=== PATIENT | male | born 1945 | race Caucasian/White ===

== ENCOUNTER → 2018-09-02 | Outpatient (CLI) | payer MEDICARE, OTHER, SELFPAY ==
[2018-09-02 10:48] LABS: Mucous, Urine 0 SEEN /hpf (<or=2+)
[2018-09-02 12:20] LABS: Absolute Lymphocyte Count 1.73 X10^3/ul (0.83-4.51); Absolute Neutrophil Count 2.3 X10^3/uL (2.0-7.7); Basophil# 0.02 X10^3/uL; Basophil% 0.4 % (0-1); Eosinophil# 0.24 X10^3/uL; Eosinophils% 5.2 % (0-5); Hematocrit 44.7 % (40-54); Hemoglobin 14.9 g/dl (13.0-16.5); Lymphocyte # 1.73 X10^3/ul (4.0); Lymphocyte % 37.5 % (19-41); Mean Corp Hgb Conc 33.3 g/gl (32-36); Mean Corpuscular Hgb 30.7 pg (27.0-32.0); Monocyte# 0.31 X10^3/uL; Monocyte% 6.7 % (0-10); Neutrophil # 2.31 X10^3/uL (2.7-7.7); Neutrophil % 50.2 % (47-70); Platelet Count 137 K/mm3 (150-450); RBC Distribution Width CV 13.3 % (11.6-14.6); RBC Distribution Width SD 43.4 fl (35.1-43.9); Red Blood Count 4.86 M/mm3 (4.6-6.2); White Blood Count 4.6 K/mm3 (4.4-11.0)
[2018-09-02 12:22] LABS: POSITIVE COUNT NO; POSITIVE DIFFERENTIAL NO; POSITIVE MORPHOLOGY NO
[2018-09-02 12:43] LABS: Hemoglobin A1c 5.9 % (4.2-6.3)
[2018-09-02 13:00] LABS: ALB/GLOB Ratio 1.4 RATIO (0.9-2.4); AST(SGOT) 18 U/L (15-37); Alanine Aminotransfer ALT/SGPT 31 U/L (16-61); Albumin, Serum 3.9 g/dL (3.2-5.0); Alkaline Phosphatase 83 U/L (45-117); Anion Gap 4 (5-15); BUN 23 mg/dL (7-18); BUN/Creat Ratio 24.2 RATIO (10-20); Calcium,Total 9.2 mg/dL (8.5-10.1); Chloride 109 mmol/L (98-107); Cholesterol 132 mg/dL (200); Creatinine, Serum 0.95 mg/dL (0.70-1.30); EST Glomerular Filtration Rate 83 mL/min (>60); Est Glom Filt Rate - Afr Amer 100 mL/min (>60); Globulin 2.8 g/dL (2.2-4.2); Glucose 78 mg/dL (74-106); High Density Lipoprotein 42 mg/dL; Potassium 4.4 mmol/L (3.5-5.1); Protein, Total 6.7 g/dL (6.4-8.2); Sodium Level 141 mmol/L (136-145); Triglycerides 85 mg/dL; Very Low Density Lipoprotein 17 mg/dL (5-40)
[2018-09-02 15:47] LABS: Color, Urine Yellow (Yellow); Glucose, Dipstick Normal (Normal); Ketone-Dipstick 5 mg/dl (Negative); Leukocyte Esterase-Dipstick 500 /ul (Negative); Nitrite-Dipstick Negative (Negative); Occult Blood-Urine 10 /ul (Negative); Protein-Dipstick Negative (Negative); Specific Gravity, Urine 1.025 (1.002-1.030); Urine Bilirubin Dipstick Negative (Negative); Urine Clarity Clear (Clear); Urine Urobilinogen Normal (Normal)
[2018-09-02 15:57] LABS: White Blood Cells >100 SEEN /hpf (0-5)
[2018-09-02 15:58] LABS: Bacteria 2+ /hpf (None Seen); Red Blood Cells-Urine 0-5 SEEN /hpf (0-5); Squamous Epithelial Cells - UA 0-5 SEEN /hpf (0-5)
[2018-09-02 16:21] LABS: Microalbumin:Creatinine Ratio 12.8 mg/g CRE (<30 mg/g CRE)
== END | disposition home or self-care (01) ==
PROVIDERS: Family Provider Family Medicine; PCP Family Medicine; Referring Provider Family Medicine; Visit Provider Family Medicine
DX: E11.9 Type 2 diabetes mellitus without complications (principal); E78.5 Hyperlipidemia, unspecified; Z86.79 Personal history of other diseases of the circulatory system
CPT/HCPCS: 36415; 80053; 80061; 81001; 82043; 82570; 83036; 85025

== ENCOUNTER → 2019-04-03 10:09 | Outpatient (CLI) | payer MEDICARE, OTHER, SELFPAY ==
[2019-04-03 12:25] LABS: Absolute Lymphocyte Count 1.62 X10^3/uL (0.83-4.51); Absolute Neutrophil Count 2.7 X10^3/uL (2.0-7.7); Basophil# 0.02 X10^3/uL; Basophil% 0.4 % (0-1); Eosinophil# 0.21 X10^3/uL; Eosinophils% 4.3 % (0-5); Hematocrit 42.8 % (40-54); Hemoglobin 14.4 g/dL (13.0-16.5); Lymphocyte # 1.62 X10^3/ul (4.0); Mean Corp Hgb Conc 33.6 g/dL (32-36); Mean Corpuscular Hgb 31.2 pg (27.0-32.0); Mean Corpuscular Volume 92.6 fL (80-94); Mean Platelet Vol. 11.8 fl (6.2-12.0); Monocyte# 0.38 X10^3/uL; Monocyte% 7.7 % (0-10); NRBC Flagged by Analyzer 0 % (0-5); Neutrophil # 2.67 X10^3/uL (2.7-7.7); Neutrophil % 54.4 % (47-70); Platelet Count 129 K/mm3 (150-450); RBC Distribution Width CV 12.8 % (11.6-14.6); RBC Distribution Width SD 43.5 fl (35.1-43.9); Red Blood Count 4.62 M/mm3 (4.6-6.2); White Blood Count 4.9 K/mm3 (4.4-11.0)
[2019-04-03 13:02] LABS: ALB/GLOB Ratio 1.1 RATIO (0.9-2.4); AST(SGOT) 14 U/L (15-37); Alanine Aminotransfer ALT/SGPT 32 U/L (16-61); Albumin, Serum 3.5 g/dL (3.2-5.0); Alkaline Phosphatase 79 U/L (45-117); Anion Gap 3 (5-15); BUN 18 mg/dL (7-18); BUN/Creat Ratio 17.3 RATIO (10-20); Calcium,Total 9.2 mg/dL (8.5-10.1); Chloride 112 mmol/L (98-107); Cholesterol 108 mg/dL (200); Creatinine, Serum 1.04 mg/dL (0.70-1.30); EST Glomerular Filtration Rate 75 mL/min (>60); Est Glom Filt Rate - Afr Amer 90 mL/min (>60); Globulin 3.2 g/dL (2.2-4.2); Glucose 70 mg/dL (74-106); High Density Lipoprotein 37 mg/dL; Protein, Total 6.7 g/dL (6.4-8.2); Sodium Level 141 mmol/L (136-145); Thyroid Stim Hormone (TSH) 0.86 uIU/mL (0.358-3.74); Triglycerides 105 mg/dL; Very Low Density Lipoprotein 21 mg/dL (5-40)
== END ==
PROVIDERS: PCP Family Medicine; Referring Provider Family Medicine; Visit Provider Family Medicine
DX: E11.9 Type 2 diabetes mellitus without complications (principal); E78.5 Hyperlipidemia, unspecified; Z86.79 Personal history of other diseases of the circulatory system
CPT/HCPCS: 36415; 80053; 80061; 83036; 84443; 85025

== ENCOUNTER → 2019-09-14 08:12 | Outpatient (CLI) | payer MEDICARE, OTHER, SELFPAY ==
[2019-09-14 10:14] LABS: ALB/GLOB Ratio 1.1 RATIO (0.9-2.4); AST(SGOT) 19 U/L (15-37); Alanine Aminotransfer ALT/SGPT 32 U/L (16-61); Albumin, Serum 3.6 g/dL (3.2-5.0); Alkaline Phosphatase 77 U/L (45-117); Anion Gap 4 (5-15); BUN 19 mg/dL (7-18); BUN/Creat Ratio 16.5 RATIO (10-20); Calcium,Total 8.7 mg/dL (8.5-10.1); Chloride 107 mmol/L (98-107); Cholesterol 134 mg/dL (200); Creatinine, Serum 1.15 mg/dL (0.70-1.30); EST Glomerular Filtration Rate 66 mL/min (>60); Est Glom Filt Rate - Afr Amer 80 mL/min (>60); Globulin 3.2 g/dL (2.2-4.2); Glucose 114 mg/dL (74-106); High Density Lipoprotein 41 mg/dL; Potassium 4.1 mmol/L (3.5-5.1); Protein, Total 6.8 g/dL (6.4-8.2); Sodium Level 141 mmol/L (136-145); Triglycerides 84 mg/dL; Very Low Density Lipoprotein 17 mg/dL (5-40)
[2019-09-14 10:19] LABS: Hemoglobin A1c 5.8 % (3.8-5.6)
== END ==
PROVIDERS: PCP Family Medicine; Referring Provider Family Medicine; Visit Provider Family Medicine
DX: E11.9 Type 2 diabetes mellitus without complications (principal); E78.5 Hyperlipidemia, unspecified; Z86.79 Personal history of other diseases of the circulatory system
CPT/HCPCS: 36415; 80053; 80061; 83036

== ENCOUNTER → 2019-09-19 14:55 | Outpatient (CLI) | payer MEDICARE, OTHER, SELFPAY | PROVIDERS: PCP Family Medicine; Referring Provider Family Medicine; Visit Provider Family Medicine | DX: Z12.5 Encounter for screening for malignant neoplasm of prostate (principal) | CPT/HCPCS: 36415; 84153; G0103 ==

== ENCOUNTER → 2019-09-25 13:58 | Outpatient (CLI) | payer MEDICARE, OTHER, SELFPAY ==
[2019-09-27 19:58] LABS: PSA, Free 1.64 ng/mL; PSA, Free % 9.5 % (.); PSA, Total Ultrasensitive 17.2 ng/mL (0.0-4.0)
== END ==
PROVIDERS: PCP Family Medicine; Referring Provider Urology; Visit Provider Urology
DX: R97.20 Elevated prostate specific antigen [PSA] (principal)
CPT/HCPCS: 36415; 84153; 84154

== ENCOUNTER → 2019-11-07 10:51 | Outpatient (CLI) | payer MEDICARE, OTHER, SELFPAY ==
--- NOTE | 2019-11-07 | PROSBIL_PTH ---
PATIENT: RAYMOND MOODY LOC: [facility] U#:[id number] AGE/SX: 79/M ROOM: RE11/07/[address]: Dr. Drake Natarajan MD : 1945 BED: DIS: SPEC #: [id number] RECD: 11/07/19 14:17 STATUS: ITALO MARK #: [id number] NIKUNJ: 11/07/19 00:[address]: Drake Natarajan DEPT: SURGICAL PATHOLOGY RECD BY: Kleber Contreras ENTERED: 11/08/19 10:32 SP TYPE: PROST BX JUAN M DR: Dr. Simón Moise MD Tissues: A - PROSTATE RIGHT B - PROSTATE RIGHT C - PROSTATE RIGHT D - PROSTATE LEFT E - PROSTATE LEFT F - PROSTATE LEFT Procedures: PROSTATE BX HEADER OPERATION: Prostate biopsy PRE-OP DIAGNOSIS: Elevated PSA TISSUE SUBMITTED: A - Right apex, B - Right mid, C - Right base, D - Left apex, E - Left mid, F - Left base MICROSCOPIC DIAGNOSIS A. Right prostate, apex, core biopsy: Focal high-grade prostatic intraepithelial neoplasia (HGPIN). Moderate acute and chronic inflammation. See comment. B. Right prostate, mid, core biopsy: Focal high-grade prostatic intraepithelial neoplasia (HGPIN). Moderate to marked acute and chronic inflammation. See comment. C. Right prostate, base, core biopsy: Focal high-grade prostatic intraepithelial neoplasia (HGPIN). Moderate to marked acute and chronic inflammation. See comment. D. Left prostate, apex, core biopsy: Prostatic tissue, negative for malignancy. E. Left prostate, mid, core biopsy: Prostatic adenocarcinoma. Gilda grade: 4+3=7 Number of cores involved: 2/3 Proportion of tissue involved: ~70% Perineural invasion: Not identified. Greatest tumor length: 0.5 cm Focal high-grade prostatic intraepithelial neoplasia (HGPIN). Focal mild chronic inflammation. See comment. F. Left prostate, base, core biopsy: Prostatic adenocarcinoma. Gilda grade: 4+3=7 Number of cores involved: 2/2 Proportion of tissue involved: >50% Perineural invasion: Present, focal. Greatest tumor length: 0.9 cm, discontinuous. Focal high-grade prostatic intraepithelial neoplasia (HGPIN). See comment. SJ:rg 11/09/19 COMMENT A-C, E & F - Immunohistochemistry ([id number]) supports the above diagnosis. Case has been reviewed in consultation with Dr. Russell who concurs with the above diagnosis. IDC:AM MICROSCOPIC DESCRIPTION Slides are reviewed. GROSS DESCRIPTION A - Received is one container designated prostate, right apex. The specimen consists of one elongated fragment of light martinez-white soft tissue measuring 0.9 cm in length and 0.1 cm in diameter. The specimen is totally submitted in one cassette. B - Received is one container designated prostate, right mid. The specimen consists of two elongated fragments of light martinez-white soft tissue measuring 1 and 1.5 cm in length and 0.1 cm in diameter. The specimen is totally submitted in one cassette. C - Received is one container designated prostate, right base. The specimen consists of two elongated fragments of light martinez-white soft tissue each measuring 1 and 1.5 cm in length and 0.1 cm in diameter. The specimen is totally submitted in one cassette. D - Received is one container designated prostate, left apex. The specimen consists of one elongated fragment of light martinez-white soft tissue measuring 1 cm in length and <0.1 cm in diameter. The specimen is totally submitted in one cassette. E - Received is one container designated prostate, left mid. The specimen consists of three elongated fragments of light martinez-white soft tissue each measuring 0.5 cm in length and 0.1 cm in diameter. The specimen is totally submitted in one cassette. F - Received is one container designated prostate, left base. The specimen consists of two elongated fragments of light martinez-white soft tissue each measuring 1.2 cm in length and 0.1 cm in diameter. The specimen is totally submitted in one cassette. / SJ:rg 11/08/19 TC:0 [facility]: [id number]
--- NOTE | 2019-11-07 | IMM_PTH ---
PATIENT: RAYMOND MOODY LOC: [facility] U#:[id number] AGE/SX: 79/M ROOM: RE11/07/[address]: Dr. Drake Natarajan MD : 1945 BED: DIS: SPEC #: [id number] RECD: 11/09/19 11:44 STATUS: ITALO REQ #: [id number] NIKUNJ: 11/07/19 00:[address]: Drake Natarajan DEPT: IMMUNOHISTOCHEMISTRY RECD BY: Eileen Galvin ENTERED: 11/09/19 11:47 SP TYPE: IMMUNO OTHR DR: Dr. Simón Moise MD Tissues: A - PROSTATE RIGHT B - PROSTATE RIGHT C - PROSTATE RIGHT E - PROSTATE LEFT F - PROSTATE LEFT Procedures: 34BE12 (add) P40 (add) 34BE12 (initial) PHYSICIAN & INSTITUTION [place] [id number] SPECIMEN INFORMATION: Tissue Source: A - Right apex, B - Right mid, C - Right base, E - Left mid, F - Left base Clinical Info: Elevated PSA Specimen Number: [id number] A, B, C, E, F CPT code: 82352, 03871 x9 METHODOLOGY: Deparaffinized sections of prefer/formalin-fixed tissue or PAP/DQ stained slides are incubated with monoclonal/polyclonal antibodies/oligonucleotide probes. Localization is made via biotin free immunoperoxidase method. Appropriate controls are performed and reacted as expected. Results on target cell population are indicated in the following table: RESULTS: ANTIBODY / CLONE RESULT Block A P40 (BC28) positive 34BE12 (34BE12) positive Block B P40 (BC28) positive 34BE12 (34BE12) positive Block C P40 (BC28) positive 34BE12 (34BE12) positive Block E P40 (BC28) negative 34BE12 (34BE12) negative Block F P40 (BC28) negative 34BE12 (34BE12) negative These tests were developed and their performance characteristics determined by [facility]. They may not have been cleared or approved by the U.S. Food and Drug Administration. The FDA has determined that such clearance or approval is not necessary. The above immunohistochemical/dualISH markers are ordered and reviewed by the Pathologist. INTERPRETATION: A. Right prostate, apex, core biopsy: Focal high-grade prostatic intraepithelial neoplasia (HGPIN). B. Right prostate, mid, core biopsy: Focal high-grade prostatic intraepithelial neoplasia (HGPIN). C. Right prostate, base, core biopsy: Focal high-grade prostatic intraepithelial neoplasia (HGPIN). E. Left prostate, mid, core biopsy: Adenocarcinoma. F. Left prostate, base, core biopsy: Adenocarcinoma. SJ:leonard 11/10/19
== END ==
PROVIDERS: PCP Family Medicine; Referring Provider Urology; Visit Provider Urology
DX: R89.7 Abnormal histological findings in specimens from other organs, systems and tissues (principal)
CPT/HCPCS: 88305; 88341; 88342; G0416

== ENCOUNTER → 2019-11-24 10:22 | Outpatient (CLI) | payer MEDICARE, OTHER, SELFPAY ==
--- NOTE | 2019-11-24 10:23 | NM_ITS ---
CLINICAL: 74-year-old male with reported history of carcinoma of the prostate. WHOLE BODY 99m Tc MDP RADIONUCLIDE BONE SCINTIGRAPHY COMPARISON: None available FINDINGS: Following the intravenous administration of 25.4 mCi of 99m Tc MDP, whole body bone images reveal: 1. Increased radiopharmaceutical concentration is identified in the mid cervical spine posteriorly on the right, lower cervical spine posteriorly on the left, acromioclavicular and sternoclavicular compartments of both shoulders, bilateral wrists, the patellofemoral compartment of the left knee, the midfoot bilaterally, fifth lumbar vertebra posteriorly on the right, left posterior sacrum. 2. The remaining skeletal structures are scintigraphically unremarkable with normal-appearing renal images and urinary bladder activity identified. Enhanced tracer distribution is defined in the bilateral maxilla and right mandible most consistent with periodontal disease and/or periostitis. NM/Bone Scan Whole Body IMPRESSION: 1. The increase in radiopharmaceutical concentration identified in the cervical and lumbar spine, right and left shoulders, both wrists, the left knee, bilateral midfoot and sacrum is most consistent with degenerative arthritis. 2. There is no definitive typical scintigraphic evidence of diffuse axial skeletal metastatic disease on the current examination. Electronically Signed: Evans Ceja DO at 16:02 EDT Tel , Service support ,
== END ==
PROVIDERS: PCP Family Medicine; Referring Provider Urology; Visit Provider Urology
DX: C61 Malignant neoplasm of prostate (principal)
CPT/HCPCS: 78306

== ENCOUNTER → 2019-11-28 13:00 | Outpatient (CLI) | payer MEDICARE, OTHER, SELFPAY ==
--- NOTE | 2019-11-28 13:02 | CT_ITS ---
STUDY: CT ABDOMEN AND PELVIS WITH AND WITHOUT CONTRAST REASON FOR EXAM: Male, 74 years old. PROSTATE CA NEW DX. HX OF HERNIA REPAIR AND APPY. RADIATION DOSAGE (If Supplied By Facility): CTDIvol = ( 12.28 ) mGy, DLP = ( 1444.79 ) mGycm TECHNIQUE: Transaxial images were obtained from the dome of the diaphragm to the symphysis pubis without oral contrast. IV 100mL Isovue-300 was administered. Sagittal and coronal images were reconstructed. Individualized dose optimization techniques were used for this CT. COMPARISON: None. FINDINGS: Minimal linear scarring at the lung bases. The visualized portions of the heart are within normal limits. Normal liver. Normal gallbladder and extrahepatic biliary system. Normal spleen. Normal pancreas. Normal bilateral adrenal glands. Normal right kidney. 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 There is a small hiatal hernia. Normal small intestine. Normal colon. There are surgical clips in the region of the appendix consistent with a prior appendectomy. There is diffuse atherosclerotic calcification of the abdominal aorta, without a demonstrated aneurysm. Normal inferior vena cava. Normal retroperitoneum. Diffuse bladder wall thickening and mild trabeculation. There is evidence of prior TURP. Central prostatic calcifications. There is a small umbilical hernia containing fat. There is evidence of mesh repair of a right inguinal hernia. There are diffuse degenerative changes of the visualized lumbar spine. CT/CT Abd/Pelvis W/WO Contrast IMPRESSION: Diffuse bladder wall thickening. Evidence of prior TURP. Dominant left renal cyst. Electronically Signed: Flakito Campbell, at 14:38 EDT , Service support ,
[2019-11-28 13:31] LABS: CREATININE FINGERSTICK 0.9 mg/dL (0.70-1.30); EGFR FINGERSTICK > 60.0000 mL/min (>60)
== END ==
PROVIDERS: PCP Family Medicine; Referring Provider Urology; Visit Provider Urology
DX: C61 Malignant neoplasm of prostate (principal)
CPT/HCPCS: 74178; Q9967

== ENCOUNTER 2019-12-28 15:56 | Inpatient (IN) | payer MEDICARE, OTHER, SELFPAY ==
--- NOTE | 2019-12-20 08:52 | EKG12_ITS ---
Test Reason : PRE OP Blood Pressure : / mmHG Vent. Rate : 081 BPM Atrial Rate : 081 BPM P-R Int : 166 ms QRS Dur : 108 ms QT Int : 388 ms P-R-T Axes : 082 086 069 degrees QTc Int : 450 ms Normal sinus rhythm Normal ECG Confirmed by MARIBEL MUNOZ, HELENA ([id number]), movie editor CARLOS GONZALEZ ([id number]) on 12/25/2019 8:26:43 A M Referred By: Drake Natarajan Confirmed By:SUMMER LÓPEZ MD
[2019-12-20 10:11] LABS: Hematocrit 44.1 % (40-54); Hemoglobin 14.7 g/dL (13.0-16.5); Mean Corp Hgb Conc 33.3 g/dL (32-36); Mean Corpuscular Hgb 31.7 pg (27.0-32.0); Mean Platelet Vol. 11.5 fl (6.2-12.0); Platelet Count 149 K/mm3 (150-450); RBC Distribution Width CV 12.8 % (11.6-14.6); RBC Distribution Width SD 44.2 fl (35.1-43.9); Red Blood Count 4.64 M/mm3 (4.6-6.2); White Blood Count 4.3 K/mm3 (4.4-11.0)
[2019-12-20 10:39] LABS: Anion Gap 5 (5-15); BUN 18 mg/dL (7-18); Calcium,Total 9.2 mg/dL (8.5-10.1); Chloride 106 mmol/L (98-107); EST Glomerular Filtration Rate 63 mL/min (>60); Est Glom Filt Rate - Afr Amer 76 mL/min (>60); Glucose 143 mg/dL (74-106); Potassium 4.3 mmol/L (3.5-5.1); Sodium Level 140 mmol/L (136-145)
[2019-12-27] VITALS (15 sets, daily range): BP systolic 100–119; BP diastolic 31–65; PULSE 63–99; RESP 16–18; TEMP 36.3–37; O2SAT 93–100; BMI 26.1
[2019-12-27 06:50] LABS: Bedside Glucose 107 mg/dL (70-110)
[2019-12-27] MEDS: Lactated Ringers 1,000 ML 100 ML IV (07:09)
[2019-12-27] MEDS: Lactated Ringers 1,000 ML 30 ML IV ×2 (07:10→09:20)
--- NOTE | 2019-12-27 07:17 | HP.PCM_ITS ---
Problem List (1) Prostate cancer Status: Acute History of Present Illness Date of Admission: 12/27/19 Chief Complaint: Prostate cancer The patient is a 74 year old male with high to intermediate grade prostate cancer on the left side high-volume. All of all biopsies were positive left side right side no biopsies were positive he is elected to undergo radical prostatectomy understands of probably will do nonnerve sparing on the left side nerve sparing in the right side we discussed the implications of erectile function on this approach. He already has erectile dysfunction. Past Medical History Allergies cat dander Allergy (Verified 12/27/19 06:45) Shortness of breath melon Allergy (Verified 12/27/19 06:45) Food Allergy Home Medications: Ambulatory Orders Medication Instructions Recorded Aspirin [Aspirin EC] 81 mg PO DAILY 12/18/19 Atorvastatin Calcium [Lipitor] 10 mg PO QHS 12/18/19 Multivit-Min/Folic/Vit K/Lycop 1 ea PO DAILY 12/18/19 [Men's 50 Plus Multivitamin Tab] Surgical History: no surgical history Smoking Status: Never smoker Review of Systems Constitutional: Denies: Chills, Fever, Weight Change HEENT: Denies: Head Aches, Sinus Congestion, Sinus Drainage Cardiovascular: Denies: Chest Pain, Palpitations Respiratory: Denies: Cough, Shortness of breath at rest, Sputum production Gastrointestinal: Denies: Abdominal Pain, Nausea, Vomiting Genitourinary: Denies: Dysuria Musculoskeletal: Denies: Joint Pain, Joint Tenderness Skin: Denies: Rash, Wounds Neurological: Denies: Numbness, Tingling, Focal weakness Psychiatric: Denies: Anxiety, Depression, Homicidal Ideations, Suicidal Ideations Hematologic/ Lymphatic: Denies: Easy Bruising, Easy Bleeding VTE Information - Inpt Only VTE Present on Admission: No VTE Mechan Device Prophylaxis: SCD's - Physical Exam Vitals/I&O's: Vital Signs Temp Pulse Resp BP Pulse Ox 97.6 F L 72 16 114/65 93 12/27/19 06:48 12/27/19 06:48 12/27/19 06:48 12/27/19 06:48 12/27/19 06:48 Oxygen Delivery Method Room Air Weight: 82.6 kg Body Mass Index (BMI) 26.1 General: Alert, Oriented x3, Cooperative HEENT: Atraumatic, PERRLA, EOMI, Normocephalic Neck: Supple, No JVD, Negative Carotid Bruits Lungs: Clear to auscultation, Normal air movement Cardiovascular: Regular rate, No murmurs Abdomen: Bowel Sounds Present, Soft, Non Tender Extremities: No edema, Capillary Refill Less than 3 Seconds Skin: No rashes, No breakdown Musculoskeletal: No Tenderness to Palpation of Joints or Extremities Neurological: Cranial nerves II-XII grossly intact Psych/Mental Status: Normal Affect, Appropriate Laboratory Results 12/27/19 06:44: POC Glucose 107 Current Medications Cefazolin Sodium 2 gm/ Sodium (Chloride) 110 mls @ 150 mls/hr IV PREOP ONE Stop: 12/27/19 08:13 Lactated Ringer's () 1,000 mls @ 100 mls/hr IV .Q10H [facility] Last Admin: 12/27/19 07:09 Dose: 100 mls/hr Documented by: Lactated Ringer's () 1,000 mls @ 30 mls/hr IV .[id number] [facility] Last Admin: 12/27/19 07:10 Dose: 30 mls/hr Documented by: Lactated Ringer's () 1,000 mls @ 30 mls/hr IV .[id number] [facility] Assessment/Plan All Active Problems Prostate cancer (Acute) 74-year-old male plan to proceed with radical prostatectomy nerve sparing in the right side probably wider dissection the left side where the cancer is.
--- NOTE | 2019-12-27 07:26 | PCM.DC.URO ---
Discharge Diet: Light diet - advance as tolerated, Soft diet Discharge Activity: May Not Drive, May Shower Return to work on:: 02/07/20 May shower in (days): 1 Call your doctor if your incision/area has: Continuous Slow Oozing, Sudden Increased Bleeding, Increased Pain/ Swelling, Increased Redness, Foul Smelling Discharge, Swelling at the incision site Call your doctor if you observe: Fever of 101 or Higher, Inability to have a bowel movement, Uncontrolled pain Suture Line Care: Avoid Pulling/Pushing, Avoid Pinching/Bending Catheter: Chandra to leg bag, Chandra to large bag Drain: [place] Instructions: Radical Prostatectomy Allergies/Adverse Reactions: Allergies cat dander Allergy (Verified 12/27/19 06:45) Shortness of breath melon Allergy (Verified 12/27/19 06:45) Food Allergy Medications to take at Discharge Aspirin [Aspirin EC] 81 mg PO DAILY 12/18/19 Atorvastatin Calcium [Lipitor] 10 mg PO QHS 12/18/19 Multivit-Min/Folic/Vit K/Lycop [Men's 50 Plus Multivitamin Tab] 1 ea PO DAILY 12/18/19 Ciprofloxacin [Cipro] 500 mg PO BID #14 tab 12/27/19 Docusate Sodium [Colace] 100 mg PO BID #20 cap 12/27/19 Hydrocodone/Acetaminophen [[place] 5-325 Tablet] 1 each PO Q4H PRN PRN 7 Days #14 tablet 12/27/19 The following prescriptions were given: Ciprofloxacin [Cipro] 500 mg PO BID #14 tab Transmission Status: Pending to [facility] Docusate Sodium [Colace] 100 mg PO BID #20 cap Transmission Status: Pending to [facility] Hydrocodone/Acetaminophen [[place] 5-325 Tablet] 1 each PO Q4H PRN PRN 7 Days #14 tablet PRN Reason: Pain 1-10 Or Fever Transmission Status: Sent to [facility] Primary Care Physician: Simón Moise MD [Primary Care Provider] - Test Results: Test results from this visit will be discussed in further detail at your follow-up appointment, if applicable. Please Follow Up With: Drake Natarajan MD - [phone] When: please call to make an appointment. Proposed Discharge Date: 12/28/19
[2019-12-27] MEDS: Cefazolin 2 GM in 0.9% Normal Saline 100 ML IV (07:28)
--- NOTE | 2019-12-27 07:30 | PROST_PTH ---
PATIENT: RAYMOND MOODY LOC: [facility] U#:[id number] AGE/SX: 74/M ROOM: [facility] RE12/28/[address]: Dr. Drake Natarajan MD : 1945 BED: 1 DIS: 12/30/2019 SPEC #: [id number] RECD: 12/27/19 11:23 STATUS: ITALO REFelipe #: [id number] NIKUNJ: 12/27/19 07:[address]: Drake Natarajan DEPT: SURGICAL PATHOLOGY RECD BY: Jennifer Mcnamara ENTERED: 12/27/19 13:35 SP TYPE: PROSTATE OTHR DR: Dr. Simón Moise MD Tissues: A - Adipose tissue B - Lymph node of pelvis, NOS C - Prostate, NOS Procedures: Surgery Specimen Level III Surgery Specimen Level V Surgery Specimen Level HEADER OPERATION: Lap robotic radical prostatectomy PRE-OP DIAGNOSIS: Malignant neoplasm; elevated PSA TISSUE SUBMITTED: A - Fat over prostate, B - Left pelvic lymph node, C - Prostate MICROSCOPIC DIAGNOSIS A. Fat over prostate: Pieces of adipose tissue, negative for carcinoma. B. Left pelvic lymph node, biopsy: One lymph node, negative for metastatic carcinoma. C. 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 Two minute lymph nodes, negative for metastatic carcinoma. See cancer summary in the comment section. SJ:leonard 01/01/20 COMMENT PROSTATE CANCER (RADICAL) SUMMARY (including specimen B & C): Procedure: Radical Prostatectomy Prostate Size: Weight: 53 gm Size: 6 cm transversely, 4 cm anterior-posteriorly and 3.5 cm craniocaudally Histologic type: Acinar adenocarcinoma - Ductal adenocarcinoma Histologic grade: Group 5, 5+4=9 Intraductal Carcinoma: Present, focal Tumor Quantitation (estimated percent of prostate involved by tumor): ~30% Tumor size: Greatest focus measures 2 x 2 cm (measured microscopically) Extraprostatic Extension: Not identified Urinary Bladder Neck Invasion: Not identified Seminal Vesicle Invasion: Not identified Lymphvascular Invasion: Not identified Perineural Invasion: Present, focal Margins: Apical margin is focally involved by the tumor. - limited involvement (<3 mm) Linear length of positive margin (~1.5 mm) Focality: Unifocal [place] pattern at positive margin: pattern 4 Treatment Effect: No known presurgical therapy. Regional Lymph Nodes: Number of lymph nodes involved by carcinoma: 0 Total Number of Lymph Nodes Examined: 3 Distant metastasis: No applicable Additional Pathologic Findings: High-grade prostatic intraepithelial neoplasia (HGPIN). Focal chronic inflammation. Ancillary studies: Not performed PATHOLOGIC STAGE: pT2 pN0 Mx The above summary is in compliance with [employer] ([employer]) Cancer Protocols Checklist and [place] [employer] on Cancer (AJCC), Staging Manual, 8th Ed. The tumor predominantly involves both right and left lobes, right apical and mid portion and left apical, mid and basal portion. Please make reference to previous specimen ([id number]) right prostate, apex and mid, core biopsy with diagnosis of focal high-grade prostatic intraepithelial neoplasia and left prostate, mid and left prostate base with diagnosis of prostatic adenocarcinoma. Case has been reviewed in consultation with Dr. Russell who concurs with the above diagnosis. IDC:AM MICROSCOPIC DESCRIPTION Slides are reviewed. GROSS DESCRIPTION A - Received in fixative is one container labeled with the patient's name and designated fat over prostate. The specimen consists of three variable sized pieces of yellow adipose tissue measuring in aggregate 3.5 x 2.5 x 0.5 cm. No mass lesion is identified. Systems Engineering Manager sections are submitted in one cassette. / :rg 12/27/19 B - Received in fixative is one container labeled with the patient's name and designated left pelvic lymph node. The specimen consists of a piece of yellow adipose tissue measuring 2.5 x 2.5 x 1 cm. One lymph node is identified measuring 2 cm in greatest dimension. The entire specimen is submitted in two cassettes. Cassette 1 contains the lymph node. / :rg 12/27/19 C - Received in fixative is one container labeled with the patient's name and designated prostate. The specimen consists of a radical prostatectomy specimen consisting of prostate and bilateral seminal vesicles and vas deferens. The specimen weighs 53 gm. The prostate measures 6 cm transversely, 4 cm anterior-posteriorly and 3.5 cm craniocaudally. The right seminal vesicle measures 2.5 x 1.5 x 0.5 cm and right vas deferens measures 1.5 cm in length and 0.4 cm in diameter. The left seminal vesicle measures 2.5 x 1.5 x 1 cm and the left vas deferens measures 2.5 cm in length and 0.4 cm in diameter. The prostate is inked as follows: anterior surface - yellow, posterior surface - black, right lateral surface - blue, left lateral surface - green. The bilateral seminal vesicles and vas deferens are inked as follows: Posterior surface - black, anterior surface right seminal vesicle and vas deferens - blue and anterior left seminal vesicle and vas deferens - green. Sections of the prostate do no reveal any obvious well-defined mass lesion. Systems Engineering Manager sections are submitted in 19 cassettes as follows: 1 - right seminal vesicle and vas deferens, 2 - left seminal vesicle and vas deferens, 3 - apical/urethral margin, enface, 4 & 5 - bladder base and basal portion of prostate margin, enface, 6-9 - apical portion prostate, 10-13 - mid portion prostate, 14-19 - basal portion prostate. / SJ:rg 12/28/19 TC:0 CPT: 66374, 43221, 38130
--- NOTE | 2019-12-27 10:22 | PCM.OPRPT ---
Problem List (1) Prostate cancer Status: Acute Report of Operation Date of Procedure: 12/27/19 Pre-Operative Diagnosis: Prostate cancer Post-Operative Diagnosis: Same Surgery/Procedure Performed:: Laparoscopic robotic assisted radical prostatectomy and pelvic lymph node dissection Description of Surgical Findings:: 74-year-old male who was found to have high-grade high-volume prostate cancer involving the left side of the prostate he is elected undergo radical prostatectomy I recommended we do a wide nerves dissection on the left side and do nerve sparing in the right side today we can proceed with a radical prostatectomy. He has a history of prior TURP. Patient was taken back to the operating room at the smooth induction of general anesthesia he was placed in dorsolithotomy position the legs in stirrups. The abdomen shaved prepped and draped in usual sterile fashion. He had a small meatal stricture which was dilated and I placed a 16 Salvadorean catheter into the bladder. We then placed our camera trocar in the umbilicus we insufflated the peritoneum with CO2 gas placed our robotic trochars docked the robot and then started the posterior dissection we went below the bladder and dissected the and cut through the peritoneum into the vas deferens and seminal vesicles these were dissected out and then I dissected below the prostate to free the prostate off the rectum. We then came out so we dropped the bladder created space of Retzius we took the fat off the prostate this was sent off as a specimen is brought up fat over prostate. We then proceeded with a lymph node dissection we went to the left pelvic lymph node identified the landmarks left iliac vein and artery identified and cleaned I then used large clips to identify the lymphatic chain in the lymph nodes were taken off the lymphatic chain the obturator nerve was identified. And then the lymph nodes were removed and put in specimen bag and sent off they appear to be normal but some lymph node tissue was removed. I then went to the prostate I incised endopelvic fascia in the right and left side dissected up to the apex of the prostate incised to the puboprostatic ligaments and and then placed a stitch in the dorsal vein complex came back between the bladder and prostate and dissected between the bladder and prostate coming across the bladder neck he did had a prior TURP so he had an open bladder neck. I then dissected between the bladder and prostate posteriorly until I reached the seminal vesicles and vas deferens. Went to the right side we sweep the neurovascular bundles off the prostate at the right side we came to the pedicles in the right side and then followed underneath the prostate and the right side all the way to the apex sparing the neurovascular bundles as we into the right side this was a good nerve sparing on the right side. We then went to the left side and this is the site of the high-grade cancer as we came to the pedicle with clips when a wider dissection in the left side all the way to the apex. Then transected to the dorsal vein complex. I then came to the urethra and dissected the urethra circumferentially so they had nice urethral length. Prostate was then removed put an Endo Catch bag we then performed an anastomosis between the bladder and the urethra over a catheter continuous running stitch was performed over the catheter we changed to an 18 Salvadorean catheter at the end of the case again a little bit difficult to get the catheter in the meatus because a small meatal stricture at the dilate this a little bit. We then flushed the catheter the urine was clear there was no leakage from the anastomosis. We then undocked the robot we extracted the prostate from the air seal port and closed this in 2 layers we then removed all the other 8 mm trochars and then closed the skin with septic the tickler skip ditches all the sponges and needles were accounted for patient is currently under anesthetic and currently being reversed from his anesthesia very minimal blood loss of the case about 300 cc. Type of Anesthesia:: General Drains: cole - Admit VTE Documentation VTE Present on Admission: No VTE Mechan Device Prophylaxis: SCD's
[2019-12-27] MEDS: Ketorolac 15 MG/ML Vial IV ×2 (12:25→17:15)
[2019-12-27] MEDS: 0.45% Normal Saline 1,000 ML 125 ML IV ×2 (13:00→21:45)
[2019-12-27] MEDS: Ciprofloxacin 400 MG/200 ML BAG 200 MG IV (14:56)
[2019-12-27] MEDS: 0.9% Saline Lock 10 ML Syringe IV ×3 (17:14→23:32)
[2019-12-27] MEDS: Ondansetron 4 MG/2 ML Vial IV (17:14)
[2019-12-27] MEDS: proCHLORPERazine 10 MG/2 ML Vial IV (19:59)
[2019-12-27] MEDS: Lactated Ringers 1,000 ML 999 ML IV (20:39)
--- NOTE | 2019-12-27 21:06 | NURSING ---
195812/27/19 pt stated he was still nauseous and was vomitting after getting zofran 4mg Q6 at 1714 [facility] called and ordered Compazine 10mg. this RN went to push med and only was able to push 5mg (1ml) before pt started to react. pt started having jerky movements and was staring off into distance with a blank expression, pt was not responsive to calling his name. this RN discontinued pushing Compazine and IV was removed. while medication was being pushed this RN also had pt sit up so posterior lung sounds could be assessed. unsure if pt vagaled or if it was a reaction to the Compazine. was notified and new orders were recieved. [facility] was in to see pt at 2044 and irrigate bladder
[2019-12-27] MEDS: Docusate Sodium 100 MG Capsule PO (22:47)
[2019-12-27] MEDS: Atorvastatin Calcium 10 MG Tablet PO (22:47)
[2019-12-27] MEDS: Ondansetron 4 MG/2 ML Vial 6 MG IV (23:32)
[2019-12-28] VITALS (15 sets, daily range): BP systolic 100–126; BP diastolic 40–80; PULSE 80–104; RESP 16–22; TEMP 36.5–37.1; O2SAT 96–99
[2019-12-28] MEDS: Ketorolac 15 MG/ML Vial IV (00:13)
[2019-12-28] MEDS: Lactated Ringers 1,000 ML 999 ML IV (00:14)
[2019-12-28 00:22] LABS: Absolute Lymphocyte Count 0.46 X10^3/uL (0.83-4.51); Absolute Neutrophil Count 8.2 X10^3/uL (2.0-7.7); Basophil# 0.01 X10^3/uL; Basophil% 0.1 % (0-1); Eosinophil# 0.18 X10^3/uL; Eosinophils% 1.9 % (0-5); Hematocrit 29.7 % (40-54); Hemoglobin 9.9 g/dL (13.0-16.5); Lymphocyte # 0.46 X10^3/ul (4.0); Mean Corp Hgb Conc 33.3 g/dL (32-36); Mean Corpuscular Hgb 32.5 pg (27.0-32.0); Mean Corpuscular Volume 97.4 fL (80-94); Monocyte# 0.41 X10^3/uL; Monocyte% 4.4 % (0-10); NRBC Flagged by Analyzer 0 % (0-5); Neutrophil # 8.17 X10^3/uL (2.7-7.7); Neutrophil % 88.4 % (47-70); POSITIVE DIFFERENTIAL YES; POSITIVE MORPHOLOGY YES; Platelet Count 130 K/mm3 (150-450); RBC Distribution Width CV 12.9 % (11.6-14.6); RBC Distribution Width SD 45.5 fl (35.1-43.9); Red Blood Count 3.05 M/mm3 (4.6-6.2); White Blood Count 9.3 K/mm3 (4.4-11.0)
[2019-12-28 00:27] LABS: Differential Indicated SCAN CRITERIA MET
[2019-12-28 00:36] LABS: Anion Gap 10 (5-15); BUN 26 mg/dL (7-18); BUN/Creat Ratio 9.8 RATIO (10-20); Chloride 109 mmol/L (98-107); Creatinine, Serum 2.66 mg/dL (0.70-1.30); EST Glomerular Filtration Rate 25 mL/min (>60); Est Glom Filt Rate - Afr Amer 30 mL/min (>60); Estimated Creatinine Clearance 25.54 ml/min; Glucose 202 mg/dL (74-106); Potassium 5.1 mmol/L (3.5-5.1); Sodium Level 141 mmol/L (136-145)
--- NOTE | 2019-12-28 00:37 | PCM.PN.BLA ---
Progress Note 74-year-old male who underwent a radical prostatectomy earlier today really had a nice case minimal blood loss during the surgery and the recovery room looked like he had nice urine coming out of the Chandra catheter. He was sent to the floor on first shift they recorded a urine output 150 cc which appeared appropriate. But then around 7:00 they reported very low urine output I came up and saw the patient at that point flushed the catheter there was no clots the patient has been some nausea and some vomiting not feeling well to the stomach. Gave another fluid bolus of the 1 L. Came back up and saw the patient here at midnight and had very little to no urine output out. We did a stat CBC and a BMP. The CBC is back hemoglobin is down to 9.9 but still I would expect some urine output even with a drop in hemoglobin. BMP is pending. We flushed the catheter again there is no clots is not clotted off bladder is draining well. At this point we start worrying about obstruction of the ureter either surgical so it is sent in for a CT scan of the abdomen pelvis with IV contrast to evaluate the bladder and the ureters and the anastomosis. He has been having some liquid diarrhea did a rectal exam really there was no liquid fluid in the rectum also concern could be a fistula but really there is but not a bunch of fluid in the rectum so. We will do a CAT scan see was going on he may have to go back to surgery it appears to be obstruction. STROKE Vital Signs/Narrative: Vital Signs Temp Pulse Resp BP Pulse Ox 12/27/19 23:48 98.6 F 99 18 113/62 98
--- NOTE | 2019-12-28 00:40 | CT_ITS ---
We are attempting to reach an attending provider to discuss findings. An addendum with communication details will be sent when the communication is complete. STUDY: CT ABDOMEN AND PELVIS WITHOUT CONTRAST REASON FOR EXAM: Male, 74 years old. NO URINE OUTPUT POST RADICAL PROSTATECTOMY -- HX:PROSTATE CANCER -- *NO IV CONTRAST DUE TO ELEVATED CREATNINE* RADIATION DOSAGE (If Supplied By Facility): CTDIvol = ( 19.41 ) mGy, DLP = ( 1160.35 ) mGycm TECHNIQUE: Transaxial images were obtained from the dome of the diaphragm to the symphysis pubis without oral contrast, and without intravenous contrast. Sagittal and coronal images were reconstructed. Individualized dose optimization techniques were used for this CT. COMPARISON: None. FINDINGS: The visualized lung bases are unremarkable. The visualized portions of the heart are within normal limits. Normal liver. Normal gallbladder and extrahepatic biliary system. Normal spleen. Normal pancreas. Normal bilateral adrenal glands. Normal right kidney. There is a 6.2 cm x 5.5 cm cyst in the upper posterior aspect of the left kidney. 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 Normal visualized stomach. Normal small intestine. Normal colon. The appendix is visualized and appears normal. There is diffuse atherosclerotic calcification of the abdominal aorta, without a demonstrated aneurysm. Normal inferior vena cava. Normal retroperitoneum. A ORTIZ catheter seen in the bladder. There is hematoma in the prostate bed measures 7 x 6 cm. There is moderate amount of hemorrhage in the peritoneal cavity. Dissecting air bubbles are seen in the abdominal wall most likely due to recent surgery follow-up is recommended to exclude an infectious process. There is thickening of the abdominal wall muscles bilaterally most likely edema or fluid due to postsurgical changes. Normal osseous structures. CT/Abdomen/Pelvis without Cont IMPRESSION: There is hematoma in the prostate bed measures 7 x 6 cm. There is moderate amount of hemorrhage in the peritoneal cavity. Electronically Signed: Rios Angelo, at 2:38 EDT Tel , Service support ,
[2019-12-28 00:45] LABS: Differential Comment SCANNED
--- NOTE | 2019-12-28 01:20 | NURSING ---
Dr Natarajan in to see pt. Pt sent down for CT scan. Dr Natarajan came back to pt's room and explained the scan, recommended surgery and described the surgery. Pt signed consent. This nurse asked pt if he would like help calling his . Pt responded no. This nurse asked pt if he was sure. Pt responded positive. States he doesn't want her to worry.
--- NOTE | 2019-12-28 01:24 | PCM.PN.BLA ---
Progress Note 74-year-old male who underwent a laparoscopic robotic radical prostatectomy, this evening he had no urine output after 2 fluid boluses still no urine output so we did a CAT scan which demonstrated a large pelvic hematoma which is pushing up on the base of his bladder the hematomas between the rectum and the bladder I believe this is pushing up in the trigone so hard that is compressing the ureters and preventing drainage from both the kidneys is creatinines up to 2.66 I explained to the patient that while the taken back to surgery we will do a laparoscopic exploration evacuation of hematoma blood clots hopefully control the bleeding and then also do a cystoscopy and bilateral stent placement to help with drainage from both the kidneys. Told the patient is possible have to do an open exploration as well but will try to do laparoscopically to minimize his morbidity. Patient understood he signed the consent form for exploration organ to go immediately the team's been called. STROKE Vital Signs/Narrative: Vital Signs Temp Pulse Resp BP Pulse Ox 12/27/19 23:48 98.6 F 99 18 113/62 98
--- NOTE | 2019-12-28 02:04 | NURSING ---
report given to surgery at this time. Patient leaving floor for OR.
[2019-12-28] MEDS: Bupivacaine Mpf 0.5% 30 ML VIAL (02:50)
[2019-12-28] MEDS: Ciprofloxacin 400 MG/200 ML BAG 200 MG IV (03:00)
--- NOTE | 2019-12-28 03:44 | PCM.OPRPT ---
Problem List (1) Prostate cancer Status: Acute Report of Operation Date of Procedure: 12/28/19 Pre-Operative Diagnosis: Postoperative hemorrhage hematoma in the pelvic area Post-Operative Diagnosis: Same Surgery/Procedure Performed:: Laparoscopic exploratory laparotomy evacuation of pelvic blood clots. Cystoscopy and placement of left stent attempted right stent placement Description of Surgical Findings:: 74-year-old male was taken back to the operating room, prior to surgery explained the patient that he was not making any urine on CAT scan he had a large pelvic hematoma looked like the bladder was being pushed up anteriorly he was dry look anemic with the pelvic hematoma recommended we taken the surgery and evacuate the pelvic hematoma also thing by placing stents bilaterally make sure there is no obstruction of the ureters. Patient was taken back to the operating room was placed supine on the table he immediately become hypotensive he was given fluids and pressors by anesthesia. We prepped and draped the abdomen usual sterile fashion placed in dorsolithotomy position. During the case he did have low blood pressures and was treated immediately by anesthesia. Went into the umbilicus placed 5 mm trocar and then placed to working trochars in the right and left abdomen using the prior incisions from the surgery the day before. Once inside the abdomen there was a large hematoma that was evident dark old blood throughout the pelvic area all this blood was evacuated using the suction evacuator I went above the bladder the anastomosis was intact and evacuated blood clots above the bladder extensively and then went below the bladder and evacuated blood clots below the bladder extensively could not really find any active bleeding after evacuating his blood clots then I placed FloSeal deep in the pelvis on both the right and left side as a precautionary measure but again really could not identify the active source of bleeding. We then had the patient in the dorsolithotomy position to remove the catheter went in with a 21 Wolof scope got to the anastomosis very carefully went to the anastomosis I was intact. I then inspected the abdomen the left ureteral orifice was identified very close anastomosis a put a wire up this in the put a stent up this took a little bit of time to look for the right side but the right side I think it was folded the lateral folds in the bladder I really could not identify the right side and did not want to spend more time in because tear in the anastomosis or any problems anastomosis so I did not further search for the right ureteral orifice I knew it would be difficult to find given the prior repair and the anastomosis ureteral orifice could be an ectopic location so after distending the left side then I put a wire into the scope and over the wire is a [place] tip catheter put into the bladder and then inflated 10 cc in the catheter and drained the bladder we then patient acetic was reversed to evaluate all the ports were taken out from the umbilicus there these were all 5 mm ports of the need to be close the fascia so then I did we just closed the skin with subcuticular stitches and bandages and he was taken back to the PACU in good condition he was hydrated with 1600 fluid up prostanoid no more pressors were used and his blood pressure was back up and he was started to make some urine from the catheter. Type of Anesthesia:: General
[2019-12-28 04:10] LABS: Hematocrit 25.5 % (40-54); Hemoglobin 8.2 g/dL (13.0-16.5); Mean Corp Hgb Conc 32.2 g/dL (32-36); Mean Corpuscular Volume 99.6 fL (80-94); Mean Platelet Vol. 11.1 fl (6.2-12.0); Platelet Count 112 K/mm3 (150-450); RBC Distribution Width CV 12.8 % (11.6-14.6); RBC Distribution Width SD 46.1 fl (35.1-43.9); Red Blood Count 2.56 M/mm3 (4.6-6.2)
[2019-12-28 04:24] LABS: Anion Gap 10 (5-15); BUN 29 mg/dL (7-18); BUN/Creat Ratio 10.5 RATIO (10-20); Calcium,Total 7.4 mg/dL (8.5-10.1); Chloride 106 mmol/L (98-107); Creatinine, Serum 2.77 mg/dL (0.70-1.30); EST Glomerular Filtration Rate 24 mL/min (>60); Est Glom Filt Rate - Afr Amer 29 mL/min (>60); Estimated Creatinine Clearance 24.52 ml/min; Glucose 189 mg/dL (74-106); Potassium 4.7 mmol/L (3.5-5.1); Sodium Level 138 mmol/L (136-145)
[2019-12-28] MEDS: Lactated Ringers 1,000 ML 150 ML IV (04:39)
[2019-12-28 05:08] LABS: Bedside Glucose 193 mg/dL (70-110)
--- NOTE | 2019-12-28 07:40 | PCM.PROGNOTE ---
Patient Problems: Active and Suspected Problems Prostate cancer (Acute) Subjective: 74-year-old male taken back to surgery last night for laparoscopic exploration found a large hematoma in the pelvis area which was evacuated also to place a stent on the left side. He feels much better this morning urine output is good steady urine output. Abdomen soft and benign incisions are clean and intact. - Physical Exam Vitals/I&O's: Vital Signs Temp Pulse Resp BP Pulse Ox 98.0 F 90 18 114/40 L 98 12/28/19 06:39 12/28/19 06:57 12/28/19 06:39 12/28/19 06:39 12/28/19 06:39 Oxygen Delivery Method Room Air Weight: 82.6 kg Body Mass Index (BMI) 26.1 Intake and Output for Last 24 Hours 12/26/19 12/27/19 12/28/19 23:59 23:59 23:59 Intake Total 4714.17 / 4714.17 1945.84 / 1945.84 Output Total 900 / 900 350 / 350 Balance 3814.17 / 3814.17 1595.84 / 1595.84 General: Alert, Oriented x3, Cooperative HEENT: Atraumatic, PERRLA, EOMI, Normocephalic Neck: Supple, No JVD, Negative Carotid Bruits Lungs: Clear to auscultation, Normal air movement Cardiovascular: Regular rate, No murmurs Abdomen: Bowel Sounds Present, Soft, Non Tender Extremities: No edema, Capillary Refill Less than 3 Seconds Skin: No rashes, No breakdown Musculoskeletal: No Tenderness to Palpation of Joints or Extremities Neurological: Cranial nerves II-XII grossly intact Psych/Mental Status: Normal Affect, Appropriate Laboratory Results 12/28/19 00:15: WBC 9.3, RBC 3.05 L, Hgb 9.9 L, Hct 29.7 L, MCV 97.4 H, MCH 32.5 H, MCHC 33.3, RDW Std Deviation 45.5 H, RDW Coeff of Indira 12.9, Plt Count 130 L, MPV 11.0, Immature Gran % (Auto) 0.200, Neut % (Auto) 88.4 H, Lymph % (Auto) 5.0 L, Starr % (Auto) 4.4, Eos % (Auto) 1.9, Baso % (Auto) 0.1, Absolute Neuts (auto) 8.2 H, Absolute Lymphs (auto) 0.46 L, Nucleated RBC % 0, Differential Comment SCANNED 12/28/19 00:15: Sodium 141, Potassium 5.1, Chloride 109 H, Carbon Dioxide 22.0, Anion Gap 10, BUN 26 H, Creatinine 2.66 H, Estim Creat Clear Calc 25.54, Est GFR (MDRD) Af Amer 30 L, Est GFR (MDRD) Non-Af 25 L, BUN/Creatinine Ratio 9.8 L, Glucose 202 H, Calcium 8.0 L 12/28/19 03:50: POC Glucose 193 H 12/28/19 04:00: WBC 8.0, RBC 2.56 L, Hgb 8.2 L, Hct 25.5 L, MCV 99.6 H, MCH 32.0, MCHC 32.2, RDW Std Deviation 46.1 H, RDW Coeff of Indira 12.8, Plt Count 112 L, MPV 11.1 12/28/19 04:00: Sodium 138, Potassium 4.7, Chloride 106, Carbon Dioxide 22.0, Anion Gap 10, BUN 29 H, Creatinine 2.77 H, Estim Creat Clear Calc 24.52, Est GFR (MDRD) Af Amer 29 L, Est GFR (MDRD) Non-Af 24 L, BUN/Creatinine Ratio 10.5, Glucose 189 H, Calcium 7.4 L Current Medications Acetaminophen (Acetaminophen 500 Mg Tablet) 500 mg PO Q4H PRN PRN PRN Reason: Pain Score 1-10/10 /Headache Atorvastatin Calcium (Atorvastatin Calcium 10 Mg Tablet) 10 mg PO QHS [facility] Last Admin: 12/27/19 22:47 Dose: 10 mg Documented by: Docusate Sodium (Docusate Sodium 100 Mg Capsule) 100 mg PO BID [facility] Last Admin: 12/27/19 22:47 Dose: 100 mg Documented by: Sodium Chloride () 250 mls @ 15 mls/hr IV .[id number] PRN PRN Reason: Saline Flush Sodium Chloride () 250 mls @ 15 mls/hr IV .[id number] PRN PRN Reason: Additional IVPB Infusion Lactated Ringer's () 1,000 mls @ 150 mls/hr IV .[id number] [facility] Last Admin: 12/28/19 04:39 Dose: 150 mls/hr Documented by: Magnesium Hydroxide (Magnesium Hydroxide 30 Ml Udc) 15 ml PO DAILY [facility] Last Admin: 12/27/19 13:53 Dose: Not Given Documented by: Morphine Sulfate (Morphine 2 Mg/Ml Syringe) 2 mg IV Q1H PRN PRN PRN Reason: Pain Score 1-10 Ondansetron HCl (Ondansetron 4 Mg/2 Ml Vial) 6 mg IV Q4H PRN PRN PRN Reason: NAUSEA Last Admin: 12/27/19 23:32 Dose: 6 mg Documented by: Pantoprazole Sodium (Pantoprazole Sodium 20 Mg Tablet) 20 mg PO DAILY [facility] Last Admin: 12/27/19 13:53 Dose: Not Given Documented by: Sodium Chloride (0.9% Saline Lock 10 Ml Syringe) 10 - 40 ml IV UD PRN PRN Reason: SALINE FLUSH Last Admin: 12/27/19 23:32 Dose: 10 ml Documented by: Medical Necessity - Tobacco Use Smoking Status: Never smoker Assessment/Plan All Active Problems Prostate cancer (Acute) 74-year-old male status post exploration, found to have large pelvic hematoma. Will follow H&H check a blood count tomorrow. Slow IV fluids ambulate in hallways clear liquid diet.
[2019-12-28] MEDS: Docusate Sodium 100 MG Capsule PO ×2 (10:40→20:52)
[2019-12-28] MEDS: Pantoprazole Sodium 20 MG Tablet PO (10:41)
[2019-12-28] MEDS: Lactated Ringers 1,000 ML 75 ML IV (12:47)
[2019-12-28] MEDS: 0.9% Normal Saline 1,000 ML 50 ML IV (17:38)
[2019-12-28] MEDS: Atorvastatin Calcium 10 MG Tablet PO (20:52)
[2019-12-29] VITALS (13 sets, daily range): BP systolic 100–128; BP diastolic 40–60; PULSE 78–94; RESP 16–18; TEMP 36.3–37.4; O2SAT 93–99
[2019-12-29 06:45] LABS: Hematocrit 18.7 % (40-54); Hemoglobin 6.3 g/dL (13.0-16.5); Mean Corp Hgb Conc 33.7 g/dL (32-36); Mean Corpuscular Hgb 32.3 pg (27.0-32.0); Mean Corpuscular Volume 95.9 fL (80-94); Mean Platelet Vol. 10.9 fl (6.2-12.0); POSITIVE COUNT YES; Platelet Count 83 K/mm3 (150-450); RBC Distribution Width CV 13.2 % (11.6-14.6); RBC Distribution Width SD 45.9 fl (35.1-43.9); Red Blood Count 1.95 M/mm3 (4.6-6.2); White Blood Count 6.9 K/mm3 (4.4-11.0)
[2019-12-29 07:09] LABS: Scan Indicated on CBC? Y/N YES- FLAGS NOTED
[2019-12-29 07:13] LABS: Anion Gap 2 (5-15); BUN 21 mg/dL (7-18); BUN/Creat Ratio 15.6 RATIO (10-20); Calcium,Total 7.9 mg/dL (8.5-10.1); Chloride 114 mmol/L (98-107); Creatinine, Serum 1.35 mg/dL (0.70-1.30); EST Glomerular Filtration Rate 55 mL/min (>60); Est Glom Filt Rate - Afr Amer 67 mL/min (>60); Estimated Creatinine Clearance 50.32 ml/min; Glucose 105 mg/dL (74-106); Potassium 4.3 mmol/L (3.5-5.1); Sodium Level 145 mmol/L (136-145)
[2019-12-29 07:14] LABS: Differential Comment SCANNED
--- NOTE | 2019-12-29 07:22 | PN_ITS ---
Patient Problems: Active and Suspected Problems Prostate cancer (Acute) Subjective: 74-year-old male status post exploration for postop bleeding evacuation of blood clots this morning H&H was low hemoglobin is 6.3 blood pressure is maintaining but given his low blood count recommend transfusing 2 units of blood. - Physical Exam Vitals/I&O's: Vital Signs Temp Pulse Resp BP Pulse Ox 98.8 F 89 17 104/56 L 94 12/29/19 04:08 12/29/19 04:08 12/29/19 04:08 12/29/19 04:08 12/29/19 04:08 Oxygen Delivery Method Room Air Weight: 82.6 kg Body Mass Index (BMI) 26.1 Intake and Output for Last 24 Hours 12/27/19 12/28/19 12/29/19 23:59 23:59 23:59 Intake Total 4714.17 / 4714.17 4002.09 / 4002.09 770 / 770 Output Total 900 / 900 3000 / 3000 2300 / 2300 Balance 3814.17 / 3814.17 1002.09 / 1002.09 -1530 / -1530 General: Alert, Oriented x3, Cooperative HEENT: Atraumatic, PERRLA, EOMI, Normocephalic Neck: Supple, No JVD, Negative Carotid Bruits Lungs: Clear to auscultation, Normal air movement Cardiovascular: Regular rate, No murmurs Abdomen: Bowel Sounds Present, Soft, Non Tender Extremities: No edema, Capillary Refill Less than 3 Seconds Skin: No rashes, No breakdown Musculoskeletal: No Tenderness to Palpation of Joints or Extremities Neurological: Cranial nerves II-XII grossly intact Psych/Mental Status: Normal Affect, Appropriate Laboratory Results 12/29/19 06:15: WBC 6.9, RBC 1.95 L, Hgb 6.3 L, Hct 18.7 L, MCV 95.9 H, MCH 32.3 H, MCHC 33.7, RDW Std Deviation 45.9 H, RDW Coeff of Indira 13.2, Plt Count 83 L, MPV 10.9, Differential Comment SCANNED 12/29/19 06:15: Sodium 145, Potassium 4.3, Chloride 114 H, Carbon Dioxide 29.0, Anion Gap 2 L, BUN 21 H, Creatinine 1.35 H, Estim Creat Clear Calc 50.32, Est GFR (MDRD) Af Amer 67, Est GFR (MDRD) Non-Af 55 L, BUN/Creatinine Ratio 15.6, Glucose 105, Calcium 7.9 L Current Medications Acetaminophen (Acetaminophen 500 Mg Tablet) 500 mg PO Q4H PRN PRN PRN Reason: Pain Score 1-10/10 /Headache Atorvastatin Calcium (Atorvastatin Calcium 10 Mg Tablet) 10 mg PO QHS [facility] Last Admin: 12/28/19 20:52 Dose: 10 mg Documented by: Docusate Sodium (Docusate Sodium 100 Mg Capsule) 100 mg PO BID [facility] Last Admin: 12/28/19 20:52 Dose: 100 mg Documented by: Sodium Chloride () 250 mls @ 15 mls/hr IV .[id number] PRN PRN Reason: Saline Flush Sodium Chloride () 250 mls @ 15 mls/hr IV .[id number] PRN PRN Reason: Additional IVPB Infusion Sodium Chloride () 1,000 mls @ 50 mls/hr IV .Q20H [facility] Last Admin: 12/28/19 17:38 Dose: 50 mls/hr Documented by: Magnesium Hydroxide (Magnesium Hydroxide 30 Ml Udc) 15 ml PO DAILY [facility] Last Admin: 12/28/19 10:41 Dose: Not Given Documented by: Morphine Sulfate (Morphine 2 Mg/Ml Syringe) 2 mg IV Q1H PRN PRN PRN Reason: Pain Score 1-10 Ondansetron HCl (Ondansetron 4 Mg/2 Ml Vial) 6 mg IV Q4H PRN PRN PRN Reason: NAUSEA Last Admin: 12/27/19 23:32 Dose: 6 mg Documented by: Pantoprazole Sodium (Pantoprazole Sodium 20 Mg Tablet) 20 mg PO DAILY [facility] Last Admin: 12/28/19 10:41 Dose: 20 mg Documented by: Sodium Chloride (0.9% Saline Lock 10 Ml Syringe) 10 - 40 ml IV UD PRN PRN Reason: SALINE FLUSH Last Admin: 12/27/19 23:32 Dose: 10 ml Documented by: Medical Necessity - Tobacco Use Smoking Status: Never smoker Assessment/Plan All Active Problems Prostate cancer (Acute) 74-year-old male status post radical prostatectomy with postoperative bleeding was taken back to the operating room for evacuation of clots hemoglobin is now down to 6.3 again transfused 2 units of blood and will advance to regular diet hold on discharge for now.
[2019-12-29] MEDS: Docusate Sodium 100 MG Capsule PO ×2 (10:08→22:12)
[2019-12-29] MEDS: Pantoprazole Sodium 20 MG Tablet PO (10:08)
[2019-12-29] MEDS: Magnesium Hydroxide 30 ML UDC 15 ML PO (10:10)
--- NOTE | 2019-12-29 11:05 | CASEMGMT ---
RN CM Face to Face with patient for initial transition planning/care coordination assessment. RN CM introduced self and role at [facility]. Patient sitting in chair, alert and oriented. Patient willing to participate in assessment and is able to answer all questions appropriately. Care providers, pharmacy, and demographics verified. Patient wishes to discharge home, denies need for home health at this time. Patient states he has no further needs or concerns at this time. CM to follow for discharge planning needs that may arise. PCP: Jose Maria Specialists: [facility] [employer] Pres[facility] Benefit: yes Living Will/HPOA: yes, Russ Welsh LNOK: Living Arrangements: Patient lives with in a 2 story home. Patient is independent at home and able to ambulate stairs. Transportation: self/ DME/HHC: Patient states he has grab bars and cpap at home. Patient denies HHC Disposition Plan: Patient to discharge home with family support and follow-up plans in place. Mya MADDENN, RN, CM
[2019-12-29] MEDS: 0.9% Normal Saline 1,000 ML 50 ML IV (19:42)
[2019-12-29] MEDS: Atorvastatin Calcium 10 MG Tablet PO (22:12)
[2019-12-30 02:08] VITALS: BP 133/61; PULSE 80; RESP 16; TEMP 36.9; O2SAT 94
--- NOTE | 2019-12-30 06:43 | PCM.DC.SUM ---
Discharge Date and Diagnosis - Problem List Patient Problems: Active and Suspected Problems Prostate cancer (Acute) Date of Admission: 12/27/19 Date of Discharge: 12/30/19 - Primary Discharge Diagnosis Acute Problems: Active Problems Prostate cancer (Acute) Hospital Course and Treatment Operations: - - Radical prostatectomy Summary of Care Provided: The patient is a 74 year old male with prostate cancer underwent a radical prostatectomy on the evening of postoperative day #1 had low urine output CAT scan was done because of drop in hemoglobin low urine output was found to have a hematoma below the prostate above the rectum causing compression on the ureters and the bladder preventing the drainage of urine from the kidneys so he was taken to back to the operating room laparoscopic exploration and evacuation of the blood clot place a stent on the 1 side after this his problem resolved he was not making urine again hemodynamically stable he was transfused 2 units of blood monitored in the hospital stable advance to regular diet and discharged home with a Chandra catheter for follow-up in the office in 10 days. Patient Problems: Active and Suspected Problems Prostate cancer (Acute) - Physical Exam Vitals/I&O's: Vital Signs Temp Pulse Resp BP Pulse Ox 98.5 F 80 16 133/61 H 94 12/30/19 02:08 12/30/19 02:08 12/30/19 02:08 12/30/19 02:08 12/30/19 02:08 Oxygen Delivery Method Room Air Weight: 82.6 kg Body Mass Index (BMI) 26.1 Intake and Output for Last 24 Hours 12/28/19 12/29/19 12/30/19 23:59 23:59 23:59 Intake Total 4002.09 / 4002.09 3022.50 / 3022.50 Output Total 3000 / 3000 3350 / 3900 1400 / 1400 Balance 1002.09 / 1002.09 -327.50 / -877.50 -1400 / -1400 General: Alert, Oriented x3, Cooperative HEENT: Atraumatic, PERRLA, EOMI, Normocephalic Neck: Supple, No JVD, Negative Carotid Bruits Lungs: Clear to auscultation, Normal air movement Cardiovascular: Regular rate, No murmurs Abdomen: Bowel Sounds Present, Soft, Non Tender Extremities: No edema, Capillary Refill Less than 3 Seconds Skin: No rashes, No breakdown Musculoskeletal: No Tenderness to Palpation of Joints or Extremities Neurological: Cranial nerves II-XII grossly intact Psych/Mental Status: Normal Affect, Appropriate Laboratory Results 12/29/19 06:15: WBC 6.9, RBC 1.95 L, Hgb 6.3 L, Hct 18.7 L, MCV 95.9 H, MCH 32.3 H, MCHC 33.7, RDW Std Deviation 45.9 H, RDW Coeff of Indira 13.2, Plt Count 83 L, MPV 10.9, Differential Comment SCANNED 12/29/19 06:15: Sodium 145, Potassium 4.3, Chloride 114 H, Carbon Dioxide 29.0, Anion Gap 2 L, BUN 21 H, Creatinine 1.35 H, Estim Creat Clear Calc 50.32, Est GFR (MDRD) Af Amer 67, Est GFR (MDRD) Non-Af 55 L, BUN/Creatinine Ratio 15.6, Glucose 105, Calcium 7.9 L 12/29/19 07:45: Blood Type A POSITIVE, Antibody Screen NEGATIVE, Crossmatch See Detail Current Medications Acetaminophen (Acetaminophen 500 Mg Tablet) 500 mg PO Q4H PRN PRN PRN Reason: Pain Score 1-10/10 /Headache Atorvastatin Calcium (Atorvastatin Calcium 10 Mg Tablet) 10 mg PO QHS [facility] Last Admin: 12/29/19 22:12 Dose: 10 mg Documented by: Docusate Sodium (Docusate Sodium 100 Mg Capsule) 100 mg PO BID [facility] Last Admin: 12/29/19 22:12 Dose: 100 mg Documented by: Sodium Chloride () 250 mls @ 15 mls/hr IV .[id number] PRN PRN Reason: Saline Flush Sodium Chloride () 250 mls @ 15 mls/hr IV .[id number] PRN PRN Reason: Additional IVPB Infusion Sodium Chloride () 1,000 mls @ 50 mls/hr IV .Q20H [facility] Last Admin: 12/29/19 19:42 Dose: 50 mls/hr Documented by: Magnesium Hydroxide (Magnesium Hydroxide 30 Ml Udc) 15 ml PO DAILY [facility] Last Admin: 12/29/19 10:10 Dose: 15 ml Documented by: Morphine Sulfate (Morphine 2 Mg/Ml Syringe) 2 mg IV Q1H PRN PRN PRN Reason: Pain Score 1-10 Ondansetron HCl (Ondansetron 4 Mg/2 Ml Vial) 6 mg IV Q4H PRN PRN PRN Reason: NAUSEA Last Admin: 12/27/19 23:32 Dose: 6 mg Documented by: Pantoprazole Sodium (Pantoprazole Sodium 20 Mg Tablet) 20 mg PO DAILY [facility] Last Admin: 12/29/19 10:08 Dose: 20 mg Documented by: Sodium Chloride (0.9% Saline Lock 10 Ml Syringe) 10 - 40 ml IV UD PRN PRN Reason: SALINE FLUSH Last Admin: 12/27/19 23:32 Dose: 10 ml Documented by: Discharge Diet: Light diet - advance as tolerated, Soft diet Discharge Activity: May Not Drive, May Shower Return to work on:: 02/07/20 May shower in (days): 1 Call your doctor if your incision/area has: Continuous Slow Oozing, Sudden Increased Bleeding, Increased Pain/ Swelling, Increased Redness, Foul Smelling Discharge, Swelling at the incision site Call your doctor if you observe: Fever of 101 or Higher, Inability to have a bowel movement, Uncontrolled pain Suture Line Care: Avoid Pulling/Pushing, Avoid Pinching/Bending Catheter: Chandra to leg bag, Chandra to large bag Drain: [place] Home Medications: Medications to take at Discharge Aspirin [Aspirin EC] 81 mg PO DAILY 12/18/19 Atorvastatin Calcium [Lipitor] 10 mg PO QHS 12/18/19 Multivit-Min/Folic/Vit K/Lycop [Men's 50 Plus Multivitamin Tab] 1 ea PO DAILY 12/18/19 Ciprofloxacin [Cipro] 500 mg PO BID #14 tab 12/27/19 Docusate Sodium [Colace] 100 mg PO BID #20 cap 12/27/19 Hydrocodone/Acetaminophen [[place] 5-325 Tablet] 1 ea PO Q4H PRN PRN 7 Days #14 tab 12/27/19 Following Prescriptions Were Given to Patient: Ciprofloxacin [Cipro] 500 mg PO BID #14 tab Transmission Status: Received by [facility] Docusate Sodium [Colace] 100 mg PO BID #20 cap Transmission Status: Received by [facility] Hydrocodone/Acetaminophen [[place]ason 5-325 Tablet] 1 ea PO Q4H PRN PRN 7 Days #14 tab PRN Reason: Pain 1-10 Or Fever Transmission Status: Received by [facility] Primary Care Physician: Simón Moise MD [Primary Care Provider] - Please Follow Up With: Drake Natarajan MD - [phone] When: please call to make an appointment. Patient Instructions: Radical Prostatectomy Medical Necessity - Tobacco Use Smoking Status: Never smoker Meaningful Use Info Meaningful Use Diagnoses (Choose all that apply): None applicable
[2019-12-30] MEDS: Docusate Sodium 100 MG Capsule PO (08:23)
[2019-12-30] MEDS: Pantoprazole Sodium 20 MG Tablet PO (08:23)
[2019-12-30] MEDS: Magnesium Hydroxide 30 ML UDC 15 ML PO (08:26)
[2019-12-30 08:36] VITALS: BP 136/55; PULSE 89; RESP 18; TEMP 36.6; O2SAT 98
== END 2019-12-30 10:59 | disposition home or self-care (01) | DRG 707 ==
LOC: SDC 16:08 → MS3 16:08
PROVIDERS: Anesthesiology; Admitting Provider Urology; PCP Family Medicine; Referring Provider Urology; Visit Provider Urology
PROC: 0VT04ZZ Resection of Prostate, Percutaneous Endoscopic Approach (ICD-10-PCS; CPT 55866; principal; 2019-12-27 07:10)
PROC: 0WCJ4ZZ Extirpation of Matter from Pelvic Cavity, Percutaneous Endoscopic Approach (ICD-10-PCS; CPT 49000; principal; 2019-12-28 02:15)
DX: C61 Malignant neoplasm of prostate (principal); N99.820 Postprocedural hemorrhage of a genitourinary system organ or structure following a genitourinary system procedure; D62 Acute posthemorrhagic anemia; Z20.828 Contact with and (suspected) exposure to other viral communicable diseases; N52.9 Male erectile dysfunction, unspecified; N35.911 Unspecified urethral stricture, male, meatal; I95.9 Hypotension, unspecified
CPT/HCPCS: 36415; 74176; 80048; 82962; 85025; 85027; 86644; 86850; 86900; 86901; 86920; 86922; 87635; 88304; 88307; 88309; 93005; 99251; C9803; J7030; J7040; J7120; P9016; P9040; A4216; C1769; C2617; G0463; J0744; J2405; U0003

== ENCOUNTER 2019-12-31 07:06 | Inpatient (IN) | payer MEDICARE, OTHER, SELFPAY ==
[2019-12-27 12:56] VITALS: BMI 26.1
[2019-12-31] VITALS (7 sets, daily range): BP systolic 112–165; BP diastolic 44–59; PULSE 71–94; RESP 16–18; TEMP 36.2–37.8; O2SAT 94–99; BMI 28.9; BMI 29.5
--- NOTE | 2019-12-31 07:28 | CT_ITS ---
STUDY: CT ABDOMEN AND PELVIS WITHOUT CONTRAST REASON FOR EXAM: Male, 74 years old. ABDOMINAL PAIN FOLLOWING PROSTATECTOMY 12/26/19 AND SECOND SURGERY TO EVACUATE CLOTS ON 12/27/19. PROSTATE CANCER.SOME LYMPHNODES REMOVED ALSO RADIATION DOSAGE (If Supplied By Facility): CTDIvol = ( 11.46 ) mGy, DLP = ( 650.21 ) mGycm TECHNIQUE: Transaxial images were obtained from the dome of the diaphragm to the symphysis pubis with oral contrast, and without intravenous contrast. Sagittal and coronal images were reconstructed. Individualized dose optimization techniques were used for this CT. COMPARISON: None. FINDINGS: There is increasing platelike atelectasis in association with the right lower lobe posterior and lateral. There are new but tiny bilateral pleural effusions seen since prior study. The visualized portions of the heart are within normal limits. Normal liver. Normal gallbladder and extrahepatic biliary system. Normal spleen. Normal pancreas. Normal bilateral adrenal glands. Normal right kidney. There is a double pigtail left ureteral stent in an expected location. The left kidney demonstrates a dominant cyst of the upper pole measuring approximately 5 cm unchanged when compared to prior study. The right kidney demonstrates mild pelviectasis and subtle right-sided hydroureter similar to that seen previously. Oral contrast is seen in the distal esophagus stomach and proximal small bowel. Normal visualized stomach. Normal small intestine. There are air-fluid levels seen within the colon which likely relates to liquid stool . No obstruction. There is non-visualization of the appendix. Moderate atherosclerosis of the aorta and iliac arteries noted. Normal inferior vena cava. Normal retroperitoneum. The urinary bladder is contracted and there is a cole catheter is seen within. The wall the urinary bladder appears thickened however this may relate to the state of contraction as well as previous bladder wall thickening which can be seen 11/28/2019 and perhaps related to bladder outlet obstruction. The prostate gland has been removed. There is free fluid seen at the operative site with elevated density consistent with hematoma, for instance refer to image #168 series 2. If the area involved with this deep pelvic collection measures approximately 6.2 cm transverse by 3.5 cm AP by 5.8 cm craniocaudal. There is less hemorrhage seen in this area however when compared to the previous exam from 12/28/2019. There is minimal air seen in the nondependent anterior abdominal cavity post surgery. There remains a minimal amount of ascites best visualized adjacent the spleen smaller in volume than compared to prior study. Normal abdominal wall. Minimal air is seen in association with the fascial planes postoperatively. Mild degenerative spondylosis noted. CT/Abdomen/Pelvis without Cont IMPRESSION: * Improving appearance when compared to previous exam. The amount of hemoperitoneum and ascites is diminishing. Diminishing intra-abdominal postoperatively. * There are air-fluid levels seen in colon indicating liquid stool. No evidence of bowel obstruction. * There does appear increasing hypoventilatory atelectatic change associated with the visualized lung bases as well as tiny bilateral pleural effusions Electronically Signed: Samira Estes MD at 9:48 EDT , Service support ,
--- NOTE | 2019-12-31 07:31 | ED.VIS.GEN ---
History of Present Illness Chief Complaint: Other, Pain/Inj Informant: Patient, Family Narrative: 74-year-old male presents postoperative day 4 with lower abdominal pain. Patient underwent radical prostatectomy by Dr. Natarajan on 12/27/2019. He required a second surgery for hematoma in the prostatic space with peritoneal hemorrhage. He received 2 units of transfusion. He was discharged home and was doing good however pain in the pelvis has worsened despite Kennan and Motrin. Today spoke with Dr. Natarajan was advised to come to emergency. They note the Chandra is draining that is bloody. notes bruising of his scrotum and abdomen. He states his abdomen feels distended. He has been trying to drink fluids. He has had approximately 400 cc out since last night. Past Medical History - Allergies and Home Meds Allergies/Adverse Reactions: Allergies cat dander Allergy (Verified 12/27/19 06:45) Shortness of breath melon Allergy (Verified 12/27/19 06:45) Food Allergy Primary Care Physician: Simón Moise MD [Primary Care Provider] - Surgical History: no surgical history Smoking Status: Former smoker Review of Systems General: Denies: Chills, Fever, Sweats Eyes: Denies: Visual changes - bilaterally, Diplopia ENT: Denies: Rhinorrhea, Sore throat Cardiovascular: Denies: Chest pain, Palpitations Respiratory: Denies: Dyspnea, Cough, Dyspnea on exertion Gastrointestinal: Reports: Abdominal pain. Denies: Nausea, Vomiting, Diarrhea, Melena, Hematochezia Genitourinary: Reports: Hematuria. Denies: Dysuria, Frequency Musculoskeletal: Denies: Back pain, Extremity Pain Skin: Denies: Rash, Wounds Neurological: Denies: Headache, Weakness, Numbness Physical Exam Vital Signs/Narrative: Vital Signs Temp Pulse Resp BP Pulse Ox 12/31/19 07:06 97.2 F L 78 18 154/56 H 96 General: Well nourished, Well developed, No Acute Distress Head: Normocephalic, Atraumatic Eyes: Perrl, EOMI ENT: Moist mucous membranes, No rhinorrhea Neck: Supple, Nontender Cardiovascular: Regular rate, Regular rhythm, No murmurs Respiratory: No distress, CTA bilaterally, Chest nontender Abdomen: Soft, Nondistended, Normal bowel sounds, Tender, Guarding, - Back: Nontender, Normal Inspection Extremities: Nontender, No edema Skin: Normal color, No rash Neurological: Alert, Oriented x3, Cranial nerves II-XII grossly intact, Normal Strength, Normal Sensation Psychological: Normal affect, Normal Mood Diagnostic/Tx/Re-eval Clinical Impression(s) from Imaging Studies Abdomen/Pelvis CT 12/31/19 07:28 IMPRESSION: * Improving appearance when compared to previous exam. The amount of hemoperitoneum and ascites is diminishing. Diminishing intra-abdominal postoperatively. * There are air-fluid levels seen in colon indicating liquid stool. No evidence of bowel obstruction. * There does appear increasing hypoventilatory atelectatic change associated with the visualized lung bases as well as tiny bilateral pleural effusions Electronically Signed: Samira Estes MD at 9:48 EDT , Service support , Laboratory Last Values WBC 7.7 K/mm3 (4.4-11.0) 12/31/19 07:40 RBC 2.79 M/mm3 (4.6-6.2) L 12/31/19 07:40 Hgb 8.6 g/dL (13.0-16.5) L 12/31/19 07:40 Hct 26.0 % (40-54) L 12/31/19 07:40 MCV 93.2 fL (80-94) 12/31/19 07:40 MCH 30.8 pg (27.0-32.0) 12/31/19 07:40 MCHC 33.1 g/dL (32-36) 12/31/19 07:40 RDW Std Deviation 51.8 fl (35.1-43.9) H 12/31/19 07:40 RDW Coeff of Indira 15.0 % (11.6-14.6) H 12/31/19 07:40 Plt Count 92 K/mm3 (150-450) L 12/31/19 07:40 MPV 10.9 fl (6.2-12.0) 12/31/19 07:40 Immature Gran % (Auto) 0.700 % (0.0-0.9) 12/31/19 07:40 Neut % (Auto) 80.5 % (47-70) H 12/31/19 07:40 Lymph % (Auto) 9.4 % (19-41) L 12/31/19 07:40 Andrew % (Auto) 6.7 % (0-10) 12/31/19 07:40 Eos % (Auto) 2.6 % (0-5) 12/31/19 07:40 Baso % (Auto) 0.1 % (0-1) 12/31/19 07:40 Absolute Neuts (auto) 6.2 X10^3/uL (2.0-7.7) 12/31/19 07:40 Absolute Lymphs (auto) 0.72 X10^3/uL (0.83-4.51) L 12/31/19 07:40 Nucleated RBC % 0 % (0-5) 12/31/19 07:40 Sodium 142 mmol/L (136-145) 12/31/19 07:40 Potassium 3.9 mmol/L (3.5-5.1) 12/31/19 07:40 Chloride 109 mmol/L (98-107) H 12/31/19 07:40 Carbon Dioxide 26.0 mmol/L (21.0-32.0) 12/31/19 07:40 Anion Gap 7 (5-15) 12/31/19 07:40 BUN 26 mg/dL (7-18) H 12/31/19 07:40 Creatinine 2.14 mg/dL (0.70-1.30) H 12/31/19 07:40 Estim Creat Clear Calc 31.74 ml/min 12/31/19 07:40 Est GFR (MDRD) Af Amer 39 mL/min (>60) L 12/31/19 07:40 Est GFR (MDRD) Non-Af 32 mL/min (>60) L 12/31/19 07:40 BUN/Creatinine Ratio 12.1 RATIO (-20) 12/31/19 07:40 Glucose 139 mg/dL (74-106) H 12/31/19 07:40 Lactic Acid 1.8 mmol/L (0.4-1.9) 12/31/19 07:40 Calcium 8.6 mg/dL (8.5-10.1) 12/31/19 07:40 Total Bilirubin 2.00 mg/dL (0.20-1.00) H 12/31/19 07:40 AST 24 U/L (15-37) 12/31/19 07:40 ALT 27 U/L (16-61) 12/31/19 07:40 Alkaline Phosphatase 71 U/L (45-117) 12/31/19 07:40 Total Protein 5.9 g/dL (6.4-8.2) L 12/31/19 07:40 Albumin 3.0 g/dL (3.2-5.0) L 12/31/19 07:40 Globulin 2.9 g/dL (2.2-4.2) 12/31/19 07:40 Albumin/Globulin Ratio 1.0 RATIO (0.9-2.4) 12/31/19 07:40 Lipase 199 U/L (73-393) 12/31/19 07:40 Urine Color Red (Yellow) 12/31/19 08:30 Urine Clarity Cloudy (Clear) 12/31/19 08:30 Urine pH 5.0 (5.0 - 8.0) 12/31/19 08:30 Ur Specific [place] 1.015 (1.002-1.030) 12/31/19 08:30 Urine Protein 100 mg/dl (Negative) H 12/31/19 08:30 Urine Glucose (UA) Normal mg/dl (Normal) 12/31/19 08:30 Urine Ketones 5 mg/dl (Negative) H 12/31/19 08:30 Urine Occult Blood 250 /ul (Negative) H 12/31/19 08:30 Urine Nitrite Negative (Negative) 12/31/19 08:30 Urine Bilirubin Negative mg/dL (Negative) 12/31/19 08:30 Urine Urobilinogen Normal mg/dl (Normal) 12/31/19 08:30 Ur Leukocyte Esterase 100 /ul (Negative) H 12/31/19 08:30 Urine RBC > 100 SEEN /hpf (0-5) 12/31/19 08:30 Urine WBC 5-10 SEEN /hpf (0-5) 12/31/19 08:30 Ur Squamous Epith Cells 0 SEEN /hpf (0-5) 12/31/19 08:30 Urine Bacteria RARE /hpf (None Seen) 12/31/19 08:30 Urine Mucus 0 SEEN /hpf (<or=2+) 12/31/19 08:30 - Medical Decision Making She received IV fluids and morphine Zofran has been resting more comfortably. Oral contrast was given for the CT scan which shows the contrast to be in the stomach and proximal small bowel. There is a large amount of stool in the ascending colon. I believe is most likely an ileus. I spoke with Dr. Natarajan who will be admitting. Family and the patient were updated. ED Disposition - Plan for ED Patient: Disposition: Acute Care Hospital [facility] Diagnosis: Postoperative ileus, Anemia Referrals: Simón Moise MD [Primary Care Provider] -
[2019-12-31] MEDS: Ondansetron 4 MG/2 ML Vial IV (07:40)
[2019-12-31] MEDS: Morphine 4 MG/ML Syringe IV (07:40)
[2019-12-31 07:53] LABS: Absolute Lymphocyte Count 0.72 X10^3/uL (0.83-4.51); Absolute Neutrophil Count 6.2 X10^3/uL (2.0-7.7); Basophil# 0.01 X10^3/uL; Basophil% 0.1 % (0-1); Eosinophils% 2.6 % (0-5); Hemoglobin 8.6 g/dL (13.0-16.5); Lymphocyte # 0.72 X10^3/ul (4.0); Lymphocyte % 9.4 % (19-41); Mean Corp Hgb Conc 33.1 g/dL (32-36); Mean Corpuscular Hgb 30.8 pg (27.0-32.0); Mean Corpuscular Volume 93.2 fL (80-94); Mean Platelet Vol. 10.9 fl (6.2-12.0); Monocyte# 0.51 X10^3/uL; Monocyte% 6.7 % (0-10); NRBC Flagged by Analyzer 0 % (0-5); Neutrophil # 6.17 X10^3/uL (2.7-7.7); Neutrophil % 80.5 % (47-70); POSITIVE COUNT YES; Platelet Count 92 K/mm3 (150-450); RBC Distribution Width SD 51.8 fl (35.1-43.9); Red Blood Count 2.79 M/mm3 (4.6-6.2); White Blood Count 7.7 K/mm3 (4.4-11.0)
[2019-12-31] MEDS: 0.9% Normal Saline 1,000 ML 125 ML IV (07:58)
[2019-12-31 08:10] LABS: AST(SGOT) 24 U/L (15-37); Alanine Aminotransfer ALT/SGPT 27 U/L (16-61); Alkaline Phosphatase 71 U/L (45-117); Anion Gap 7 (5-15); BUN 26 mg/dL (7-18); BUN/Creat Ratio 12.1 RATIO (10-20); Calcium,Total 8.6 mg/dL (8.5-10.1); Chloride 109 mmol/L (98-107); Creatinine, Serum 2.14 mg/dL (0.70-1.30); EST Glomerular Filtration Rate 32 mL/min (>60); Est Glom Filt Rate - Afr Amer 39 mL/min (>60); Estimated Creatinine Clearance 31.74 ml/min; Globulin 2.9 g/dL (2.2-4.2); Glucose 139 mg/dL (74-106); Lipase 199 U/L (73-393); Potassium 3.9 mmol/L (3.5-5.1); Protein, Total 5.9 g/dL (6.4-8.2); Sodium Level 142 mmol/L (136-145)
[2019-12-31 08:39] LABS: Mucous, Urine 0 SEEN /hpf (<or=2+); Squamous Epithelial Cells - UA 0 SEEN /hpf (0-5)
[2019-12-31 08:44] LABS: Color, Urine Red (Yellow); Glucose, Dipstick Normal (Normal); Ketone-Dipstick 5 mg/dl (Negative); Leukocyte Esterase-Dipstick 100 /ul (Negative); Nitrite-Dipstick Negative (Negative); Occult Blood-Urine 250 /ul (Negative); Protein-Dipstick 100 mg/dl (Negative); Specific Gravity, Urine 1.015 (1.002-1.030); Urine Bilirubin Dipstick Negative (Negative); Urine Clarity Cloudy (Clear); Urine Urobilinogen Normal (Normal)
[2019-12-31 08:45] LABS: Lactic Acid 1.8 mmol/L (0.4-1.9)
[2019-12-31 08:58] LABS: Bacteria RARE /hpf (None Seen); Red Blood Cells-Urine > 100 SEEN /hpf (0-5); White Blood Cells 5-10 SEEN /hpf (0-5)
[2019-12-31] MEDS: Morphine 2 MG/ML Syringe IV ×3 (13:45→19:51)
[2019-12-31] MEDS: Ciprofloxacin 400 MG/200 ML BAG 200 MG IV ×2 (13:46→21:39)
[2019-12-31] MEDS: 0.9% Normal Saline 1,000 ML 75 ML IV (13:48)
--- NOTE | 2019-12-31 17:45 | RAD_ITS ---
STUDY: X-RAY - ABDOMEN/PELVIS REASON FOR EXAM: Male, 74 years old. NG placement image #1 TECHNIQUE: Frontal view of the chest COMPARISON: None. FINDINGS: Gastric tube descends down the right main bronchus. Lungs are clear. There is no gas under the diaphragm. RAD/Abdomen Single View (Portable) IMPRESSION: Gastric tube with tip in the right lower lung down the right bronchus. This was repositioned subsequently. Electronically Signed: Mark Iglesias, at 18:32 EDT Tel , Service support ,
--- NOTE | 2019-12-31 18:05 | RAD_ITS ---
STUDY: X-RAY - ABDOMEN/PELVIS REASON FOR EXAM: Male, 74 years old. NG placement image #2 TECHNIQUE: Frontal view of the chest/upper abdomen COMPARISON: None. FINDINGS: Gastric tube passes into the stomach and terminates with its tip in the proximal body. Lungs are clear. There is no gas under the diaphragms. RAD/Abdomen Single View (Portable) IMPRESSION: Gastric tube with tip in the gastric body. Electronically Signed: Mark Iglesias, at 18:31 EDT Tel , Service support ,
--- NOTE | 2019-12-31 18:07 | HP.PCM_ITS ---
Problem List (1) Postoperative ileus Status: Acute History of Present Illness Date of Admission: 12/31/19 Chief Complaint: Postoperative ileus status post radical prostatectomy The patient is a 74 year old male who underwent a radical prostatectomy last w [place] had to get explored laparoscopically for bleeding postop then he recovered really nicely Wednesday morning he was feeling well belly was nice and soft tolerating regular diet so we discharged him home he presented Wednesday with a distended abdomen nausea and vomiting he admitted to the hospital NG tube was placed we will check the NG tube placement now we will put continue low intermittent suction I think he developed a postoperative ileus CAT scan was done again demonstrated signs of postoperative ileus with no sign of any other problem perforation obstruction but appears to be an ileus pattern has had some smears but no gas. Past Medical History Allergies cat dander Allergy (Verified 12/27/19 06:45) Shortness of breath melon Allergy (Verified 12/27/19 06:45) Food Allergy Home Medications: Ambulatory Orders Medication Instructions Recorded Aspirin [Aspirin EC] 81 mg PO DAILY 12/18/19 Atorvastatin Calcium [Lipitor] 10 mg PO QHS 12/18/19 Multivit-Min/Folic/Vit K/Lycop 1 ea PO DAILY 12/18/19 [Men's 50 Plus Multivitamin Tab] Hydrocodone/Acetaminophen [[place] 1 ea PO Q4H PRN PRN 7 Days #14 tab 12/27/19 5-325 Tablet] Ciprofloxacin [Cipro] 500 mg PO BID 12/31/19 Docusate Sodium [Colace] 100 mg PO BID 12/31/19 Surgical History: no surgical history Smoking Status: Former smoker Review of Systems Constitutional: Denies: Chills, Fever, Weight Change HEENT: Denies: Head Aches, Sinus Congestion, Sinus Drainage Cardiovascular: Denies: Chest Pain, Palpitations Respiratory: Denies: Cough, Shortness of breath at rest, Sputum production Gastrointestinal: Denies: Abdominal Pain, Nausea, Vomiting Genitourinary: Denies: Dysuria Musculoskeletal: Denies: Joint Pain, Joint Tenderness Skin: Denies: Rash, Wounds Neurological: Denies: Numbness, Tingling, Focal weakness Psychiatric: Denies: Anxiety, Depression, Homicidal Ideations, Suicidal Ideations Hematologic/ Lymphatic: Denies: Easy Bruising, Easy Bleeding VTE Information - Inpt Only VTE Present on Admission: No Patient Problems: Active and Suspected Problems Postoperative ileus (Acute) Anemia (Acute) - Physical Exam Vitals/I&O's: Vital Signs Temp Pulse Resp BP Pulse Ox 98.4 F 81 16 128/48 H 96 12/31/19 14:01 12/31/19 14:01 12/31/19 14:01 12/31/19 14:01 12/31/19 14:01 Oxygen Delivery Method Room Air Weight: 93.259 kg Body Mass Index (BMI) 29.5 Intake and Output for Last 24 Hours 12/29/19 12/30/19 12/31/19 23:59 23:59 23:59 Intake Total 691.67 / 691.67 Output Total 800 / 800 Balance -108.33 / -108.33 General: Alert, Oriented x3, Cooperative HEENT: Atraumatic, PERRLA, EOMI, Normocephalic Neck: Supple, No JVD, Negative Carotid Bruits Lungs: Clear to auscultation, Normal air movement Cardiovascular: Regular rate, No murmurs Abdomen: Bowel Sounds Present, Soft, Non Tender Extremities: No edema, Capillary Refill Less than 3 Seconds Skin: No rashes, No breakdown Musculoskeletal: No Tenderness to Palpation of Joints or Extremities Neurological: Cranial nerves II-XII grossly intact Psych/Mental Status: Normal Affect, Appropriate Laboratory Results 12/31/19 07:40: WBC 7.7, RBC 2.79 L, Hgb 8.6 L, Hct 26.0 L, MCV 93.2, MCH 30.8, MCHC 33.1, RDW Std Deviation 51.8 H, RDW Coeff of Indira 15.0 H, Plt Count 92 L, MPV 10.9, Immature Gran % (Auto) 0.700, Neut % (Auto) 80.5 H, Lymph % (Auto) 9.4 L, Jones % (Auto) 6.7, Eos % (Auto) 2.6, Baso % (Auto) 0.1, Absolute Neuts (auto) 6.2, Absolute Lymphs (auto) 0.72 L, Nucleated RBC % 0 12/31/19 07:40: Sodium 142, Potassium 3.9, Chloride 109 H, Carbon Dioxide 26.0, Anion Gap 7, BUN 26 H, Creatinine 2.14 H, Estim Creat Clear Calc 31.74, Est GFR (MDRD) Af Amer 39 L, Est GFR (MDRD) Non-Af 32 L, BUN/Creatinine Ratio 12.1, Glucose 139 H, Calcium 8.6, Total Bilirubin 2.00 H, AST 24, ALT 27, Alkaline Phosphatase 71, Total Protein 5.9 L, Albumin 3.0 L, Globulin 2.9, Albumin/Globulin Ratio 1.0, Lipase 199 12/31/19 07:40: Lactic Acid 1.8 12/31/19 08:30: Urine Color Red, Urine Clarity Cloudy, Urine pH 5.0, Ur Specific [place] 1.015, Urine Protein 100 H, Urine Glucose (UA) Normal, Urine Ketones 5 H, Urine Occult Blood 250 H, Urine Nitrite Negative, Urine Bilirubin Negative, Urine Urobilinogen Normal, Ur Leukocyte Esterase 100 H, Urine RBC > 100 SEEN, Urine WBC 5-10 SEEN, Ur Squamous Epith Cells 0 SEEN, Urine Bacteria RARE, Urine Mucus 0 SEEN Current Medications Belladonna Alkaloids/Opium (Opium/Belladonna Alkaloids 60 Mg/15 Mg Suppository) 60 mg RECTAL Q6H PRN PRN PRN Reason: BLADDER SPASM Last Admin: 12/31/19 15:55 Dose: 60 mg Documented by: Bisacodyl (Bisacodyl 10 Mg Suppository) 10 mg RECTAL DAILY [facility] Docusate Sodium (Docusate Sodium 100 Mg Capsule) 200 mg PO BID EMILIA Sodium Chloride () 250 mls @ 15 mls/hr IV .[id number] PRN PRN Reason: Saline Flush Sodium Chloride () 250 mls @ 15 mls/hr IV .[id number] PRN PRN Reason: Additional IVPB Infusion Sodium Chloride () 1,000 mls @ 75 mls/hr IV .[id number] [facility] Last Infusion: 12/31/19 15:07 Dose: 75 mls/hr Documented by: Ciprofloxacin (Cipro) 400 mg in 200 mls @ 200 mls/hr IV Q12 [facility] Last Infusion: 12/31/19 15:07 Dose: Infused Documented by: Morphine Sulfate (Morphine 2 Mg/Ml Syringe) 2 mg IV Q2H PRN PRN PRN Reason: Pain Score 1-10 Last Admin: 12/31/19 17:27 Dose: 2 mg Documented by: Nutritional Formula (Lactose Free) (Ensure Enlive 120 Ml Liquid) 120 ml PO 4X/DAY [facility] Last Admin: 12/31/19 16:27 Dose: Not Given Documented by: Ondansetron HCl (Ondansetron 4 Mg/2 Ml Vial) 4 mg IV Q4H PRN PRN PRN Reason: NAUSEA Sodium Chloride (0.9% Saline Lock 10 Ml Syringe) 10 - 40 ml IV UD PRN PRN Reason: SALINE FLUSH Assessment/Plan All Active Problems Prostate cancer (Acute) Postoperative ileus (Acute) Anemia (Acute) 74-year-old male discharged home doing well then came back to the hospital distended abdomen ileus nausea vomiting NG tube placed we will continue bowel rest await for ileus to resolve we will check a KUB in the morning.
[2019-12-31] MEDS: 0.9% Saline Lock 10 ML Syringe IV (19:51)
[2020-01-01] MEDS: 0.9% Normal Saline 1,000 ML 75 ML IV (00:26)
[2020-01-01] MEDS: Metoclopramide 10 MG/2 ML Vial 5 MG IV ×5 (00:26→23:52)
[2020-01-01] MEDS: 0.9% Saline Lock 10 ML Syringe IV ×8 (00:26→18:50)
[2020-01-01] MEDS: Morphine 2 MG/ML Syringe IV ×6 (00:39→14:32)
[2020-01-01 03:49] VITALS: BP 142/48; PULSE 92; RESP 18; TEMP 37.4; O2SAT 94
--- NOTE | 2020-01-01 05:14 | RAD_ITS ---
STUDY: ABDOMEN X-RAY 3 OR MORE VIEWS REASON FOR EXAM: Male, 74 years old. ILEUS TECHNIQUE: 3 supine x-ray views of the abdomen are provided. COMPARISON: December 31, 2019 KUB abdomen FINDINGS: There is moderate stool within the ascending colon. Is an NG tube present with the tip in the stomach. There is a gassy appearance of the transverse colon. There is a left-sided double-J stent. The proximal coil slightly uncoiled.. There is a catheter present in the bladder. There is degenerative change in the thoracolumbar spine. RAD/Abdomen Single View IMPRESSION: Gassy colon, Mild colonic ileus. Left-sided double-J stent Chandra catheter. Electronically Signed: Cathryn Bennett MD at 6:11 EDT Tel , Service support ,
[2020-01-01 06:04] LABS: Hematocrit 24.9 % (40-54); Hemoglobin 8.1 g/dL (13.0-16.5); Mean Corp Hgb Conc 32.5 g/dL (32-36); Mean Corpuscular Hgb 30.3 pg (27.0-32.0); Mean Corpuscular Volume 93.3 fL (80-94); Mean Platelet Vol. 10.9 fl (6.2-12.0); Platelet Count 108 K/mm3 (150-450); RBC Distribution Width CV 14.9 % (11.6-14.6); Red Blood Count 2.67 M/mm3 (4.6-6.2)
[2020-01-01 06:33] LABS: Anion Gap 6 (5-15); BUN 20 mg/dL (7-18); BUN/Creat Ratio 16.5 RATIO (10-20); Calcium,Total 7.9 mg/dL (8.5-10.1); Chloride 112 mmol/L (98-107); Creatinine, Serum 1.21 mg/dL (0.70-1.30); EST Glomerular Filtration Rate 62 mL/min (>60); Est Glom Filt Rate - Afr Amer 76 mL/min (>60); Estimated Creatinine Clearance 56.14 ml/min; Glucose 120 mg/dL (74-106); Potassium 3.6 mmol/L (3.5-5.1); Sodium Level 144 mmol/L (136-145)
--- NOTE | 2020-01-01 06:56 | PCM.PN.BLA ---
Progress Note 74-year-old male status post radical prostatectomy return to the hospital with an ileus pattern nausea vomiting distended abdomen. We did he decompressed his stomach last night with an NG tube overnight is done well urine outputs been adequate. KUB today has an ileus pattern for the colon with colonic mild colonic ileus. He did report passing some flatus and also small liquid bowel movement I think we can remove the NG tube and resume a clear liquid diet he will need to ambulate we will give him a suppository to stimulate the colon. STROKE Vital Signs/Narrative: Vital Signs Temp Pulse Resp BP Pulse Ox 01/01/20 03:49 99.3 F H 92 18 142/48 H 94
[2020-01-01] MEDS: Bisacodyl 10 MG Suppository RECTAL (07:29)
[2020-01-01 08:30] VITALS: BP 124/79; PULSE 72; RESP 18; TEMP 36.5; O2SAT 96
[2020-01-01] MEDS: Ciprofloxacin 400 MG/200 ML BAG 200 MG IV ×2 (09:25→21:47)
[2020-01-01] MEDS: Enoxaparin 30 MG/0.3 ML Syringe SC (09:35)
[2020-01-01] MEDS: Docusate Sodium 100 MG Capsule 200 MG PO ×2 (09:44→21:47)
[2020-01-01] MEDS: Ketorolac 15 MG/ML Vial IV (10:09)
[2020-01-01] MEDS: Ensure Clear 120 ML Liquid PO ×2 (12:05→18:01)
[2020-01-01] MEDS: Ibuprofen 600 MG Tablet PO ×2 (15:05→23:55)
[2020-01-01] MEDS: Acetaminophen 500 MG Tablet PO ×3 (15:06→21:46)
--- NOTE | 2020-01-01 15:19 | CASEMGMT ---
MICHAEL RYAN chart review: Patient was admitted 12/27/19-12/30/19 for prostatectomy and post op bleeding with laparotomy. Patient discharged to home with . Patient returned 12/31/19 to ED for abdominal pain. CT scan showed ileus. Patient had NG tube over night. NG tube removed 01/01/20 and began clear liquid diet. See MICHAEL RYAN assessment from 12/29/19. Disposition: Patient to discharge home with family support and follow-up plans in place.
--- NOTE | 2020-01-01 16:11 | CHAPLAIN ---
Type of Pastoral Visit _x__ Initial Visit ___ Follow-up Visit ___ On-call Visit ___ General Patient Visit ___ Spiritual Assessment ___ Family Conference ___ Bereavement ___ Rapid Response ___ Code Blue ___ Other (describe below) Pastoral Care Referral From _x__ Patient ___ Family ___ Nurse ___ Physician ___ [employer] ___ Orthopedic Surgeon ___ Other (describe below) Sacrament/Intervention _x__ Active listening ___ Anointing ___ Scientology ___ Bereavement ___ Communion _x__ Emeli exploration ___ _x__ Life review _x__ Prayer ___ Reconciliation ___ Sacrament of Sick _x__ Supportive presence ___ Wedding ___ Other (describe below) Pastoral Comments
[2020-01-01 17:12] VITALS: BP 108/58; PULSE 78; RESP 18; TEMP 36.9; O2SAT 98
[2020-01-01] MEDS: 0.9% Normal Saline 1,000 ML 30 ML IV (18:57)
[2020-01-01 20:14] VITALS: BP 144/74; PULSE 77; RESP 17; TEMP 36.6; O2SAT 97
[2020-01-02 02:10] VITALS: BP 132/57; PULSE 80; RESP 18; TEMP 37.3; O2SAT 97
[2020-01-02] MEDS: Acetaminophen 500 MG Tablet PO ×6 (02:12→22:13)
[2020-01-02] MEDS: Metoclopramide 10 MG/2 ML Vial 5 MG IV ×4 (05:41→23:42)
--- NOTE | 2020-01-02 07:36 | PCM.PN.BLA ---
Progress Note 74-year-old male status post radical cystectomy return to the hospital with an ileus reports that he is been passing flatus this morning he feels better he standing up walking around. We can advance him to regular diet but no plan for discharge today belly still a little distended but starting to move his bowels a little his bowel function is returning so we will watch him for 24 hours hopefully if he does well for the next 24 hours and was sent home tomorrow morning.
[2020-01-02] MEDS: Ensure Clear 120 ML Liquid PO ×2 (08:20→17:28)
[2020-01-02 08:54] VITALS: BP 127/59; PULSE 83; RESP 16; TEMP 36.6; O2SAT 95
[2020-01-02] MEDS: Ciprofloxacin 400 MG/200 ML BAG 200 MG IV ×2 (10:14→22:13)
[2020-01-02] MEDS: Enoxaparin 30 MG/0.3 ML Syringe SC (10:14)
[2020-01-02] MEDS: Bisacodyl 10 MG Suppository RECTAL (10:14)
[2020-01-02] MEDS: Docusate Sodium 100 MG Capsule 200 MG PO ×2 (10:14→22:13)
[2020-01-02] MEDS: Ibuprofen 600 MG Tablet PO ×2 (13:14→20:03)
[2020-01-02] MEDS: 0.9% Saline Lock 10 ML Syringe IV (13:14)
[2020-01-02 13:24] VITALS: BP 163/82; PULSE 71; RESP 16; TEMP 36.6; O2SAT 97
[2020-01-02 20:00] VITALS: BP 138/68; PULSE 82; RESP 16; TEMP 36.6; O2SAT 98
[2020-01-03 02:32] VITALS: BP 144/69; PULSE 84; RESP 16; TEMP 36.6; O2SAT 97
[2020-01-03] MEDS: Ibuprofen 600 MG Tablet PO ×3 (02:39→22:16)
[2020-01-03] MEDS: 0.9% Normal Saline 1,000 ML 30 ML IV (02:40)
[2020-01-03] MEDS: Acetaminophen 500 MG Tablet PO ×6 (02:40→22:16)
[2020-01-03] MEDS: Metoclopramide 10 MG/2 ML Vial 5 MG IV (05:38)
--- NOTE | 2020-01-03 07:31 | PCM.PN.BLA ---
Progress Note 74-year-old male admitted for postoperative ileus after surgery. He is progressing but very slowly still belching and burping states he is passing gas his belly is nice and soft working to Hep-Lock his fluids continue with regular diet as tolerated schedule swelling in the scrotum and lower extremities black and blue bruising through the perineum in the back this is probably result from the hematoma. Eliane continue with regular diet ambulation still does not look strong enough to go home so we will continue with observation I will get some labs tomorrow.
[2020-01-03 09:10] VITALS: BP 126/63; PULSE 81; RESP 16; TEMP 36.8; O2SAT 97
[2020-01-03] MEDS: Enoxaparin 30 MG/0.3 ML Syringe SC (09:16)
[2020-01-03] MEDS: Docusate Sodium 100 MG Capsule 200 MG PO ×2 (09:16→22:16)
[2020-01-03] MEDS: Ciprofloxacin 400 MG/200 ML BAG 200 MG IV ×2 (09:23→22:16)
--- NOTE | 2020-01-03 14:29 | CASEMGMT ---
Social Work Note Per district customs director questions, pt has completed HCPOA and LW and provided copies to [facility]. SW reviewed pt's chart, no documents found. SW in to speak with pt. SW introduced self and role at [facility]. Pt is alert and orientated. Pt states that he's completed HCPOA not LW. SW updated pt that HCPOA is not on file at [facility]. Pt states understanding. Mya Rizvi RESTORATION OFFICER, BOW MAKING MACHINE OPERATOR
[2020-01-03 14:30] VITALS: BP 164/81; PULSE 91; RESP 16; TEMP 36.7; O2SAT 98
[2020-01-03 20:45] VITALS: BP 158/70; PULSE 86; RESP 18; TEMP 36.8; O2SAT 98
[2020-01-03] MEDS: 0.9% Saline Lock 10 ML Syringe IV (22:20)
[2020-01-04] MEDS: Acetaminophen 500 MG Tablet PO ×5 (02:37→17:58)
[2020-01-04 02:38] VITALS: BP 148/50; PULSE 82; RESP 18; TEMP 36.9; O2SAT 97
[2020-01-04 06:30] LABS: Hematocrit 27.9 % (40-54); Hemoglobin 9.3 g/dL (13.0-16.5); Mean Corp Hgb Conc 33.3 g/dL (32-36); Mean Corpuscular Hgb 30.8 pg (27.0-32.0); Mean Corpuscular Volume 92.4 fL (80-94); Mean Platelet Vol. 10.4 fl (6.2-12.0); Platelet Count 207 K/mm3 (150-450); RBC Distribution Width CV 14.3 % (11.6-14.6); Red Blood Count 3.02 M/mm3 (4.6-6.2); White Blood Count 6.9 K/mm3 (4.4-11.0)
[2020-01-04 06:51] LABS: Anion Gap 7 (5-15); BUN 27 mg/dL (7-18); BUN/Creat Ratio 17.1 RATIO (10-20); Calcium,Total 8.5 mg/dL (8.5-10.1); Chloride 109 mmol/L (98-107); Creatinine, Serum 1.58 mg/dL (0.70-1.30); EST Glomerular Filtration Rate 46 mL/min (>60); Est Glom Filt Rate - Afr Amer 56 mL/min (>60); Estimated Creatinine Clearance 42.99 ml/min; Glucose 128 mg/dL (74-106); Potassium 3.4 mmol/L (3.5-5.1); Sodium Level 140 mmol/L (136-145)
--- NOTE | 2020-01-04 07:33 | PCM.PN.BLA ---
Progress Note 74-year-old male return the hospital with an ileus last night finally had a bowel movement and is feeling better this morning he is eating breakfast if he tolerates breakfast lunch and dinner possible go home today with a catheter this evening.
[2020-01-04 09:15] VITALS: BP 142/54; PULSE 83; RESP 12; TEMP 36.6; O2SAT 97
[2020-01-04] MEDS: Docusate Sodium 100 MG Capsule 200 MG PO (09:41)
[2020-01-04] MEDS: Enoxaparin 30 MG/0.3 ML Syringe SC (09:41)
[2020-01-04] MEDS: Ciprofloxacin 400 MG/200 ML BAG 200 MG IV (09:48)
[2020-01-04] MEDS: 0.9% Saline Lock 10 ML Syringe IV (09:53)
[2020-01-04] MEDS: Ibuprofen 600 MG Tablet PO (12:25)
[2020-01-04 16:10] VITALS: BP 157/52; PULSE 96; RESP 16; TEMP 36.9; O2SAT 98
--- NOTE | 2020-01-04 17:32 | DCINST_ITS ---
Discharge Diet: Light diet - advance as tolerated Discharge Activity: May not drive while taking narcotic pain medications. Call your doctor if your incision/area has: Sudden Increased Bleeding Call your doctor if you observe: Fever of 101 or Higher Suture Line Care: Avoid Pulling/Pushing, Avoid Pinching/Bending Catheter: Chandra to leg bag, Chandra to large bag Drain: [place] Allergies/Adverse Reactions: Allergies cat dander Allergy (Verified 12/27/19 06:45) Shortness of breath melon Allergy (Verified 12/27/19 06:45) Food Allergy Medications to take at Discharge Aspirin [Aspirin EC] 81 mg PO DAILY 12/18/19 Atorvastatin Calcium [Lipitor] 10 mg PO QHS 12/18/19 Multivit-Min/Folic/Vit K/Lycop [Men's 50 Plus Multivitamin Tab] 1 ea PO DAILY 12/18/19 Hydrocodone/Acetaminophen [[place] 5-325 Tablet] 1 ea PO Q4H PRN PRN 7 Days #14 tab 12/27/19 Ciprofloxacin [Cipro] 500 mg PO BID 12/31/19 Docusate Sodium [Colace] 100 mg PO BID 12/31/19 Primary Care Physician: Simón Moise MD [Primary Care Provider] - Test Results: Test results from this visit will be discussed in further detail at your follow- up appointment, if applicable. Please Follow Up With: Drake Natarajan MD When: keep apt
--- NOTE | 2020-01-05 15:05 | CASEMGMT ---
MICHAEL RYAN Discharge Follow-up Phone Call: NAY: Jeanne Strata: 3 Call Date: 01/05/20 Discharge Date: 01/04/20 Time of Call: 1505 Duration: 1 min Admitting Diagnosis: MICHAEL RYAN attempted follow-up phone call after recent hospitalization. No answer, voice message left with return contact information.
== END 2020-01-04 18:05 | disposition home or self-care (01) | DRG 388 ==
LOC: ED 10:22 → MS3 11:52
PROVIDERS: Admitting Provider Urology; Emergency Provider Emergency Medicine; PCP Family Medicine; Visit Provider Urology
DX: K56.7 Ileus, unspecified (principal); K66.1 Hemoperitoneum; R18.8 Other ascites; Z98.890 Other specified postprocedural states; Z87.891 Personal history of nicotine dependence; Z90.79 Acquired absence of other genital organ(s); D64.9 Anemia, unspecified
CPT/HCPCS: 74018; 74176; 80048; 80053; 81001; 83605; 83690; 85025; 85027; 97802; 99284; J7030; J7040; A4216; J0744; J2405

== ENCOUNTER → 2020-01-30 08:19 | Outpatient (CLI) | payer MEDICARE, OTHER, SELFPAY ==
[2019-12-31 11:29] VITALS: BMI 29.5
[2020-01-30 10:37] LABS: Hemoglobin A1c 5.4 % (3.8-5.6)
[2020-01-30 10:48] LABS: AST(SGOT) 13 U/L (15-37); Alanine Aminotransfer ALT/SGPT 26 U/L (16-61); Albumin, Serum 3.1 g/dL (3.2-5.0); Alkaline Phosphatase 103 U/L (45-117); Anion Gap 5 (5-15); BUN 18 mg/dL (7-18); BUN/Creat Ratio 14.2 RATIO (10-20); Calcium,Total 8.9 mg/dL (8.5-10.1); Chloride 109 mmol/L (98-107); Creatinine, Serum 1.27 mg/dL (0.70-1.30); EST Glomerular Filtration Rate 59 mL/min (>60); Est Glom Filt Rate - Afr Amer 71 mL/min (>60); Globulin 3.1 g/dL (2.2-4.2); Glucose 162 mg/dL (74-106); Potassium 4.2 mmol/L (3.5-5.1); Protein, Total 6.2 g/dL (6.4-8.2); Sodium Level 143 mmol/L (136-145)
[2020-01-30 11:19] LABS: Microalbumin:Creatinine Ratio 652.8 mg/g CRE (<30 mg/g CRE)
== END ==
PROVIDERS: PCP Family Medicine; Referring Provider Family Medicine; Visit Provider Family Medicine
DX: E11.9 Type 2 diabetes mellitus without complications (principal)
CPT/HCPCS: 36415; 80053; 82043; 82570; 83036

== ENCOUNTER → 2020-02-12 16:58 | Outpatient (CLI) | payer MEDICARE, OTHER, SELFPAY ==
[2019-12-31 11:29] VITALS: BMI 29.5
== END ==
PROVIDERS: PCP Family Medicine; Referring Provider Urology; Visit Provider Urology
DX: N39.0 Urinary tract infection, site not specified (principal)
CPT/HCPCS: 87077; 87086; 87088; 87186

== ENCOUNTER → 2020-03-19 14:57 | Outpatient (CLI) | payer MEDICARE, OTHER, SELFPAY ==
[2019-12-31 11:29] VITALS: BMI 29.5
[2020-03-19 16:47] LABS: PSA,Total- Diagnostic < 0.01 ng/mL (0.0-4.0)
== END ==
PROVIDERS: PCP Family Medicine; Visit Provider Urology
DX: C61 Malignant neoplasm of prostate (principal)
CPT/HCPCS: 36415; 84153

== ENCOUNTER 2020-05-06 17:08 | Outpatient (RCR) | payer MEDICARE, OTHER, SELFPAY ==
[2019-12-31 11:29] VITALS: BMI 29.5
== END 2020-05-06 23:59 ==
LOC: IMMUN 17:08
PROVIDERS: PCP Family Medicine; Visit Provider Family Medicine
DX: Z23 Encounter for immunization (principal)
CPT/HCPCS: 0011A; 0012A

== ENCOUNTER → 2020-06-26 07:32 | Outpatient (CLI) | payer MEDICARE, OTHER, SELFPAY ==
[2019-12-31 11:29] VITALS: BMI 29.5
[2020-06-26 08:36] LABS: PSA,Total- Diagnostic 0.01 ng/mL (0.0-4.0)
== END ==
PROVIDERS: PCP Family Medicine; Referring Provider Urology; Visit Provider Urology
DX: C61 Malignant neoplasm of prostate (principal)
CPT/HCPCS: 36415; 84153

== ENCOUNTER → 2020-07-03 07:29 | Outpatient (CLI) | payer MEDICARE, OTHER, SELFPAY ==
[2019-12-31 11:29] VITALS: BMI 29.5
[2020-07-03 08:14] LABS: Absolute Lymphocyte Count 1.42 X10^3/uL (0.83-4.51); Absolute Neutrophil Count 2.8 X10^3/uL (2.0-7.7); Basophil# 0.03 X10^3/uL; Basophil% 0.6 % (0-1); Eosinophil# 0.39 X10^3/uL; Eosinophils% 7.8 % (0-5); Hematocrit 44.1 % (40-54); Hemoglobin 14.4 g/dL (13.0-16.5); Lymphocyte # 1.42 X10^3/ul (0.83-4.51); Lymphocyte % 28.2 % (19-41); Mean Corp Hgb Conc 32.7 g/dL (32-36); Mean Corpuscular Hgb 30.6 pg (27.0-32.0); Mean Corpuscular Volume 93.6 fL (80-94); Mean Platelet Vol. 11.4 fl (6.2-12.0); Monocyte# 0.37 X10^3/uL; Monocyte% 7.4 % (0-10); NRBC Flagged by Analyzer 0 % (0-5); Neutrophil # 2.81 X10^3/uL (2.7-7.7); Neutrophil % 55.8 % (47-70); Platelet Count 145 K/mm3 (150-450); RBC Distribution Width CV 12.9 % (11.6-14.6); RBC Distribution Width SD 44.4 fl (35.1-43.9); Red Blood Count 4.71 M/mm3 (4.6-6.2)
[2020-07-03 08:49] LABS: ALB/GLOB Ratio 1.1 RATIO (0.9-2.4); AST(SGOT) 16 U/L (15-37); Alanine Aminotransfer ALT/SGPT 31 U/L (16-61); Albumin, Serum 3.6 g/dL (3.2-5.0); Alkaline Phosphatase 107 U/L (45-117); Anion Gap 3 (5-15); BUN 20 mg/dL (7-18); BUN/Creat Ratio 18.2 RATIO (10-20); Calcium,Total 9.1 mg/dL (8.5-10.1); Chloride 108 mmol/L (98-107); Cholesterol 119 mg/dL (200); EST Glomerular Filtration Rate 70 mL/min (>60); Est Glom Filt Rate - Afr Amer 84 mL/min (>60); Globulin 3.3 g/dL (2.2-4.2); Glucose 107 mg/dL (74-106); High Density Lipoprotein 40 mg/dL; Potassium 4.1 mmol/L (3.5-5.1); Protein, Total 6.9 g/dL (6.4-8.2); Sodium Level 141 mmol/L (136-145); Triglycerides 98 mg/dL; Very Low Density Lipoprotein 20 mg/dL (5-40)
[2020-07-03 08:54] LABS: Hemoglobin A1c 5.9 % (3.8-5.6)
== END ==
PROVIDERS: PCP Family Medicine; Referring Provider Family Medicine; Visit Provider Family Medicine
DX: E78.5 Hyperlipidemia, unspecified (principal); E11.9 Type 2 diabetes mellitus without complications; G47.33 Obstructive sleep apnea (adult) (pediatric)
CPT/HCPCS: 36415; 80053; 80061; 83036; 85025

== ENCOUNTER → 2020-11-07 08:31 | Outpatient (CLI) | payer MEDICARE, OTHER, SELFPAY ==
--- NOTE | 2020-11-07 08:36 | US_ITS ---
INDICATION: NODULE EXAMINATION: Ultrasound US Thyroid (eg thyroid, parathyroid, parotid) TECHNIQUE: Lopez scale and color doppler imaging was performed of the thyroid gland. COMPARISON: None. FINDINGS: RIGHT THYROID LOBE: The right lobe of the thyroid gland is of normal size and demonstrates unremarkable homogeneous echogenicity, unremarkable vascularity. Unremarkable size, shape and configuration. The right lobe of the thyroid gland measures 4.3 x 1.7 x 1.7 cm. No evidence of thyroid nodules are seen. LEFT THYROID LOBE: The left lobe of the thyroid gland is of normal size and demonstrates unremarkable homogeneous echogenicity, unremarkable vascularity. Unremarkable size, shape and configuration. The left lobe of the thyroid gland measures 4.1 x 1.5 x 2.1 cm. A single nodule is visualized in the midpole of the left lobe. LOCATION: Midpole SIZE: 1.3 x 0.8 x 1.0 cm. COMPOSITION: Solid and cystic consistency (1 point) . ECHOGENICITY: Isoechoic (1 point) . SHAPE: Wider than taller (0 point) . MARGINS: Smooth (0 point) . ECHOGENIC FOCI: None (0 point) . ISTHMUS: The isthmus demonstrates unremarkable echogenicity and unremarkable vascularity. No evidence of nodules in the isthmus. The isthmus measures 0.6 cm in AP diameter. US/Thyroid IMPRESSION: 1.3 cm TR 2 nodule visualized in the left lobe of the thyroid gland. No FNA recommended. Electronically Signed: Kapil Smart MD at 10:54 EDT Tel , Service support ,
== END ==
PROVIDERS: PCP Family Medicine; Referring Provider Family Medicine; Visit Provider Family Medicine
DX: E04.1 Nontoxic single thyroid nodule (principal)
CPT/HCPCS: 76536

== ENCOUNTER → 2020-12-18 16:35 | Outpatient (CLI) | payer MEDICARE, OTHER, SELFPAY ==
[2020-12-18 18:34] LABS: PSA,Total- Diagnostic 0.01 ng/mL (0.0-4.0)
== END ==
PROVIDERS: PCP Family Medicine; Referring Provider Family Medicine; Visit Provider Urology
DX: Z48.816 Encounter for surgical aftercare following surgery on the genitourinary system (principal)
CPT/HCPCS: 36415; 84153

== ENCOUNTER 2021-05-13 08:05 | Outpatient (CLI) | payer MEDICARE, OTHER, SELFPAY ==
[2021-05-13 10:14] LABS: Absolute Neutrophil Count 2.8 X10^3/uL (2.0-7.7); Basophil# 0.02 X10^3/uL; Basophil% 0.4 % (0-1); Eosinophil# 0.21 X10^3/uL; Eosinophils% 4.6 % (0-5); Hemoglobin 14.6 g/dL (13.0-16.5); Lymphocyte % 26.5 % (19-41); Mean Corp Hgb Conc 33.2 g/dL (32-36); Mean Corpuscular Hgb 31.5 pg (27.0-32.0); Mean Corpuscular Volume 94.8 fL (80-94); Mean Platelet Vol. 11.8 fl (6.2-12.0); Monocyte# 0.29 X10^3/uL; Monocyte% 6.4 % (0-10); NRBC Flagged by Analyzer 0 % (0-5); Neutrophil % 61.9 % (47-70); Platelet Count 130 K/mm3 (150-450); RBC Distribution Width CV 12.8 % (11.6-14.6); RBC Distribution Width SD 44.3 fl (35.1-43.9); Red Blood Count 4.64 M/mm3 (4.6-6.2); White Blood Count 4.5 K/mm3 (4.4-11.0)
[2021-05-13 10:43] LABS: ALB/GLOB Ratio 1.2 RATIO (0.9-2.4); AST(SGOT) 20 U/L (15-37); Alanine Aminotransfer ALT/SGPT 31 U/L (16-61); Albumin, Serum 3.7 g/dL (3.2-5.0); Alkaline Phosphatase 91 U/L (45-117); Anion Gap 5 (5-15); BUN 22 mg/dL (7-18); Calcium,Total 8.6 mg/dL (8.5-10.1); Chloride 111 mmol/L (98-107); Cholesterol 114 mg/dL (200); EST Glomerular Filtration Rate 78 mL/min (>60); Est Glom Filt Rate - Afr Amer 94 mL/min (>60); Glucose 119 mg/dL (74-106); High Density Lipoprotein 39 mg/dL; Potassium 4.2 mmol/L (3.5-5.1); Protein, Total 6.7 g/dL (6.4-8.2); Sodium Level 142 mmol/L (136-145); Triglycerides 77 mg/dL; Very Low Density Lipoprotein 15 mg/dL (5-40)
== END 2021-05-13 23:59 | disposition home or self-care (01) ==
LOC: MFPLAB 08:06
PROVIDERS: PCP Family Medicine; Referring Provider Family Medicine; Visit Provider Family Medicine
DX: E11.9 Type 2 diabetes mellitus without complications (principal)
CPT/HCPCS: 36415; 80053; 80061; 82043; 82570; 83036; 85025

== ENCOUNTER 2021-06-23 13:06 | Outpatient (CLI) | payer MEDICARE, OTHER, SELFPAY ==
[2021-06-23 15:27] LABS: PSA,Total- Diagnostic < 0.01 ng/mL (0.0-4.0)
== END 2021-06-23 23:59 | disposition home or self-care (01) ==
LOC: MTLAB 13:07
PROVIDERS: PCP Family Medicine; Referring Provider Urology; Visit Provider Urology
DX: C61 Malignant neoplasm of prostate (principal)
CPT/HCPCS: 36415; 84153

== ENCOUNTER → 2021-12-22 | Outpatient (CLI) | payer MEDICARE, OTHER, SELFPAY ==
[2021-12-22 17:22] LABS: PSA,Total- Diagnostic 0.01 ng/mL (0.0-4.0)
== END | disposition home or self-care (01) ==
LOC: LAB 15:59
PROVIDERS: PCP Family Medicine; Referring Provider Urology; Visit Provider Urology
DX: C61 Malignant neoplasm of prostate (principal)
CPT/HCPCS: 36415; 84153

== ENCOUNTER → 2022-02-05 | Outpatient (CLI) | payer MEDICARE, OTHER, SELFPAY ==
--- NOTE | 2022-02-05 12:01 | US_ITS ---
STUDY: THYROID ULTRASOUND REASON FOR EXAM: Male, 76 years old. NODULE TECHNIQUE: Ultrasound evaluation of the thyroid was performed with real-time and static edwards-scale imaging. COMPARISON: Comparison is made with prior study dated 11/07/2020. FINDINGS: RIGHT LOBE: The right lobe of the thyroid gland measures 3.5 cm x 1.9 cm x 1.9 cm. There is a homogeneous echotexture. There are no demonstrated solid, cystic or complex lesions. LEFT LOBE: The left lobe of the thyroid gland measures 4.1 cm x 1.4 cm x 2 cm. There is a homogeneous echotexture. There is a 1.1 cm x 0.8 cm x 1.1 cm hypoechoic solid nodule in the midpole. This is essentially unchanged. ISTHMUS: The isthmus measures 8 mm. The regional lymph nodes are normal. US/Thyroid IMPRESSION: Stable examination. Electronically Signed: Flakito Campbell MD at 14:56 EST ,
== END | disposition home or self-care (01) ==
LOC: US 11:59
PROVIDERS: PCP Family Medicine; Visit Provider Family Medicine
DX: E04.1 Nontoxic single thyroid nodule (principal)
CPT/HCPCS: 76536

== ENCOUNTER 2022-03-20 07:07 | Day surgery (SDC) | payer MEDICARE, OTHER, SELFPAY ==
[2022-03-20 07:36] VITALS: BP 118/53; PULSE 72; RESP 18; TEMP 36.5; O2SAT 95; BMI 28.0
[2022-03-20] MEDS: Lactated Ringers 1,000 ML 15 ML IV (07:36)
--- NOTE | 2022-03-20 07:59 | PCM.HP.BLA ---
History and Physical Date of Admission: 03/20/22 Intake Vital Signs ? 02/05/2209:56 Height 5 ft 9 in Weight: 195 lb 6 oz BMI 28.8 BP 114/68 Blood Pressure Location Rt brachial Position Sitting Respiration 16 Pulse 74 Pulse Source Monitor Temp 96.2 F L Temp Source Temporal Pulse Oximetry (%) 96 Oxygen Delivery Method room air Intake Visit Reasons:?SCOPE- HISTORY OF POLYPS Chief Complaint: Cscope Consult Power Barker Required: No Is patient in pain?: No Allergies cat dander Allergy (Verified 02/05/22 09:58) Shortness of breathmelon Allergy (Verified 02/05/22 09:58) Food Allergy Medications aspirin 81 mg tablet,delayed release 81 mg PO DAILY heart health 12/18/19 [History Confirmed 02/05/22] atorvastatin 10 mg tablet 10 mg PO QHS cholesterol 12/18/19 [History Confirmed 02/05/22] ftjjvvwnwdby-yen-fbjgw acid-vit K-lycop 400 mcg-20 mcg-370 mcg tablet 1 ea PO DAILY supplement 12/18/19 [History Confirmed 02/05/22] PFSH Medical History?(Updated 02/05/22 @ 09:56 by Sarahi Roth) Anemia History of colon polyps Postoperative ileus Prostate cancer Surgical History?(Updated 02/05/22 @ 09:52 by Sarahi Roth) H/O hernia repair H/O lithotripsy Family History?(Updated 02/05/22 @ 09:53 by Sarahi Roth) Mother Breast cancer DiabetesFather Cancer ?? ? prostate CABrother Diabetes Social History?(Updated 02/05/22 @ 09:55 by Sarahi Roth) Smoking Status:? Former smoker how long ago did patient quit smoking:? 50 yrs ago alcohol intake:? current details:? Rare substance use type:? does not use HPI HPI Surgical H&P: Yes HPI: Patient is a 76-year-old male here for colonoscopy.? His last colonoscopy was 5 years ago and 3 polyps were removed.? The patient denies any abdominal pain or blood in the stool.? The patient denies any family history of colon cancer. ROS General General: No weight change, appetite, fatigue, colon cancer, breast cancer or weakness HEENT HEENT: No difficulty swallowing, eye injury, eye surgery, swollen glands or hoarseness Endo Endocrine: No thyroid disease Additional Details: prediabetes per patient Skin Skin: No rash or changing moles Breast Breast: No left breast lump, right breast lump, nipple discharge, breast pain, abnormal mammogram, abnormal US or breast enlargement Musc Musculoskeletal: No back problems, arthritis, rheumatoid arthritis, gout or joint pain Cardio Cardiovascular: Yes murmur; No pacemaker, heart disease, atrial fibrillation, high blood pressure, heart attack, heart stent, palpitations, shortness of breat with exertion or chest pain Psych Psychiatric: No depression, anxiety or hearing voices Resp Respiratory: No shortness of breath, No cough, No COPD, No asthma and No emphysema Additional Details: asthma as a child per pt Gastro Gastrointestinal: No abdominal pain, No nausea or vomiting, No diarrhea, No constipation, No blood in stool, No acid reflux, No hemorrhoids, No ulcers, No gallbladder problem and No black,tarry stools Jad Hematologic: No blood thinners Additional Details: baby ASA daily Neuro Neurologic: No system reviewed and no additional complaints, except as documented, No as per HPI, No abnormal gait, No abnormal hearing, No abnormal movements, No abnormal speech, No behavioral changes, No burning sensations, No confusion, No convulsions, No disequilibrium, No dizziness, No localized weakness, No frequent falls, No headache(s), No lack of coordination, No loss of vision, No memory loss, No numbness, No other visual disturbances, No radicular pain, No restless legs, No sensory deficit, No syncope, No tingling, No tremor(s), No weakness and No other Exam Const General: cooperative Orientation: alert and oriented x3 HENMT Head: normal to inspection Neck Neck: normal visual inspection and full ROM Chest Chest palpation & inspection: normal inspection of the chest Resp Effort & Inspection: normal respiratory effort Auscultation: clear to auscultation bilaterally Cardio Rate: regular rate Rhythm: regular rhythm GI Inspection: non-distended Palpation: soft and nontender Skin General: no rashes or lesions noted Neuro General: patient alert and patient oriented x3 Extrem General: full ROM Psych Appearance: grossly normal Mental Status: mental status grossly normal Assessment and Plan Assessment and Plan (1) History of colon polyps: ?Status:?Acute ?Plan: Patient requires surveillance colonoscopy due to history of polyps. I explained endoscopy in detail to the patient.? I explained the risks including but not limited to stroke or heart attack with anesthesia, perforation of the GI tract, bleeding, infection.? I explained that any of these could necessitate further emergency surgery.? The patient understands and all questions were answered sufficiently.? The patient wishes to proceed with procedure. Herman Snow MD Pager: [facility] [address] [place] [address], [address] [place] [address] Office: I have examined the patient and the H&P has been reviewed. There are no clinical changes since date of exam.
[2022-03-20 08:30] VITALS: BP 118/53; BP 96/52; PULSE 59; RESP 16; TEMP 36.3; O2SAT 93
[2022-03-20 08:35] VITALS: BP 118/53; BP 95/48; PULSE 57; RESP 16; O2SAT 93
[2022-03-20 08:40] VITALS: BP 118/53; BP 93/48; PULSE 56; RESP 16; O2SAT 92
[2022-03-20 08:45] VITALS: BP 100/51; BP 118/53; PULSE 58; RESP 16; TEMP 36.2; O2SAT 93
--- NOTE | 2022-03-20 09:07 | OP.COLON_ITS ---
Patient Name: Elie Welsh Procedure Date: 03/20/2022 8:04 AM Date of : 1945 Age: 76 Procedure: Colonoscopy Indications: High risk colon cancer surveillance: Personal history of colonic polyps Providers: Herman Snow MD Medicines: Monitored Anesthesia Care Patient Profile: This is a 76 year old male. Refer to note in patient chart for documentation of history and physical. Last Colonoscopy: 5 years ago. Complications: No immediate complications. Procedure: Pre-Anesthesia Assessment: - Prior to the procedure, a History and Physical was performed, and patient medications and allergies were reviewed. The patient's tolerance of previous anesthesia was also reviewed. The risks and benefits of the procedure and the sedation options and risks were discussed with the patient. All questions were answered, and informed consent was obtained. Prior Anticoagulants: The patient has taken no previous anticoagulant or antiplatelet agents. After reviewing the risks and benefits, the patient was deemed in satisfactory condition to undergo the procedure. After I obtained informed consent, the scope was passed under direct vision. Throughout the procedure, the patient's blood pressure, pulse, and oxygen saturations were monitored continuously. The colonoscope was introduced through the anus and advanced to the cecum, identified by appendiceal orifice and ileocecal valve. The colonoscopy was performed without difficulty. The patient tolerated the procedure well. The quality of the bowel preparation was good. Scope In: 8:16:24 AM Scope Withdrawal Time 0 hours 6 minutes 47 seconds Scope Out: 8:29:02 AM Total Procedure Duration Time 0 hours 12 minutes 38 seconds Findings: The entire examined colon appeared normal on direct and retroflexion views. Impression: - The entire examined colon is normal on direct and retroflexion views. - No specimens collected. Recommendation: - Discharge patient to home. - Resume previous diet. - Continue present medications. - Repeat colonoscopy is not recommended due to current age (66 years or older) for screening purposes. Procedure Code(s): --- Professional --- 87532, Colonoscopy, flexible; diagnostic, including collection of specimen(s) by brushing or washing, when performed (separate procedure) Diagnosis Code(s): --- Professional --- Z86.010, Personal history of colonic polyps CPT copyright 2017 [employer]. All rights reserved. The codes documented in this report are preliminary and upon point of care specialist review may be revised to meet current compliance requirements. Herman Snow MD 03/20/2022 9:06:38 AM This report has been signed electronically. Number of Addenda: 0 Note Initiated On: 03/20/2022 8:04 AM
--- NOTE | 2022-03-20 09:07 | OP.CCLET_ITS ---
03/20/2022 Simón Moise [address] [place] [address] Re : Colonoscopy procedure for Elie Welsh Dear Dr. Moise This procedure was performed on Sunday, March 20, 2022. My impressions and recommendations are as follows: Impressions : - The entire examined colon is normal on direct and retroflexion views. - No specimens collected. Recommendations : - Discharge patient to home. - Resume previous diet. - Continue present medications. - Repeat colonoscopy is not recommended due to current age (66 years or older) for screening purposes. My findings are described in the full procedure note, which is enclosed. If I can be of further assistance, please feel free to contact me at Doctor phone number(s): , Work: . Sincerely, Herman Snow MD 03/20/2022 9:06:38 AM This report has been signed electronically.
[2022-03-20 09:36] VITALS: BP 118/53
== END 2022-03-20 09:42 | disposition home or self-care (01) ==
LOC: EN 07:08 → AC 07:09
PROVIDERS: PCP Family Medicine; Referring Provider Family Medicine; Visit Provider Surgery
PROC: 0DJD8ZZ Inspection of Lower Intestinal Tract, Via Natural or Artificial Opening Endoscopic (ICD-10-PCS; CPT 45378; principal; 2022-03-20 07:55)
DX: Z12.11 Encounter for screening for malignant neoplasm of colon (principal); G47.30 Sleep apnea, unspecified; E78.00 Pure hypercholesterolemia, unspecified; Z79.82 Long term (current) use of aspirin; Z79.899 Other long term (current) drug therapy; Z87.891 Personal history of nicotine dependence; Z86.010 Personal history of colon polyps
CPT/HCPCS: 45378; J7120; J2405

== ENCOUNTER → 2022-05-21 | Outpatient (CLI) | payer MEDICARE, OTHER, SELFPAY ==
[2022-05-21 12:16] LABS: Absolute Lymphocyte Count 1.43 X10^3/uL (0.83-4.51); Absolute Neutrophil Count 3.2 X10^3/uL (2.0-7.7); Basophil# 0.03 X10^3/uL; Basophil% 0.6 % (0-1); Eosinophil# 0.19 X10^3/uL; Eosinophils% 3.7 % (0-5); Hematocrit 42.8 % (40-54); Hemoglobin 14.6 g/dL (13.0-16.5); Lymphocyte # 1.43 X10^3/ul (0.83-4.51); Lymphocyte % 27.7 % (19-41); Mean Corp Hgb Conc 34.1 g/dL (32-36); Mean Corpuscular Hgb 32.4 pg (27.0-32.0); Mean Corpuscular Volume 95.1 fL (80-94); Mean Platelet Vol. 11.1 fl (6.2-12.0); Monocyte# 0.33 X10^3/uL; Monocyte% 6.4 % (0-10); NRBC Flagged by Analyzer 0 % (0-5); Neutrophil # 3.17 X10^3/uL (2.7-7.7); Neutrophil % 61.4 % (47-70); Platelet Count 148 K/mm3 (150-450); RBC Distribution Width CV 12.5 % (11.6-14.6); RBC Distribution Width SD 43.4 fl (35.1-43.9); White Blood Count 5.2 K/mm3 (4.4-11.0)
[2022-05-21 12:34] LABS: Microalbumin,Random Urine 22.6 mg/L (NO RANGE EST.); Microalbumin:Creatinine Ratio 19.2 mg/g CRE (<30 mg/g CRE)
[2022-05-21 12:55] LABS: Hemoglobin A1c 5.9 % (3.8-5.6)
[2022-05-21 13:06] LABS: ALB/GLOB Ratio 1.1 RATIO (0.9-2.4); AST(SGOT) 22 U/L (15-37); Alanine Aminotransfer ALT/SGPT 37 U/L (16-61); Albumin, Serum 3.6 g/dL (3.2-5.0); Alkaline Phosphatase 94 U/L (45-117); Anion Gap 5 (5-15); BUN 21 mg/dL (7-18); BUN/Creat Ratio 20.4 RATIO (10-20); Calcium,Total 9.4 mg/dL (8.5-10.1); Chloride 109 mmol/L (98-107); Cholesterol 125 mg/dL (200); Creatinine, Serum 1.03 mg/dL (0.70-1.30); EST Glomerular Filtration Rate 75 mL/min (>60); Est Glom Filt Rate - Afr Amer 90 mL/min (>60); Globulin 3.3 g/dL (2.2-4.2); Glucose 84 mg/dL (74-106); High Density Lipoprotein 40 mg/dL; Potassium 4.1 mmol/L (3.5-5.1); Protein, Total 6.9 g/dL (6.4-8.2); Sodium Level 141 mmol/L (136-145); Thyroid Stim Hormone (TSH) 1.23 uIU/mL (0.358-3.74); Triglycerides 123 mg/dL; Very Low Density Lipoprotein 25 mg/dL (5-40)
== END | disposition home or self-care (01) ==
LOC: MFPLAB 10:54
PROVIDERS: PCP Family Medicine; Referring Provider Family Medicine; Visit Provider Family Medicine
DX: E11.9 Type 2 diabetes mellitus without complications (principal)
CPT/HCPCS: 36415; 80053; 80061; 82043; 82570; 83036; 84443; 85025

== ENCOUNTER → 2022-06-18 | Outpatient (CLI) | payer MEDICARE, OTHER, SELFPAY ==
[2022-06-18 11:10] LABS: PSA,Total- Diagnostic 0.01 ng/mL (0.0-4.0)
== END | disposition home or self-care (01) ==
LOC: LAB 10:01
PROVIDERS: PCP Family Medicine; Referring Provider Urology; Visit Provider Urology
DX: C61 Malignant neoplasm of prostate (principal)
CPT/HCPCS: 36415; 84153

== ENCOUNTER → 2022-11-16 | Outpatient (CLI) | payer MEDICARE, OTHER, SELFPAY ==
[2022-11-16 12:09] LABS: Absolute Lymphocyte Count 1.39 X10^3/uL (0.83-4.51); Absolute Neutrophil Count 3.5 X10^3/uL (2.0-7.7); Basophil# 0.03 X10^3/uL; Basophil% 0.5 % (0-1); Eosinophil# 0.19 X10^3/uL; Eosinophils% 3.5 % (0-5); Hematocrit 44.2 % (40-54); Hemoglobin 14.5 g/dL (13.0-16.5); Lymphocyte # 1.39 X10^3/ul (0.83-4.51); Lymphocyte % 25.4 % (19-41); Mean Corp Hgb Conc 32.8 g/dL (32-36); Mean Corpuscular Hgb 31.8 pg (27.0-32.0); Mean Corpuscular Volume 96.9 fL (80-94); Mean Platelet Vol. 10.9 fl (6.2-12.0); Monocyte# 0.32 X10^3/uL; Monocyte% 5.9 % (0-10); NRBC Flagged by Analyzer 0 % (0-5); Neutrophil # 3.51 X10^3/uL (2.7-7.7); Neutrophil % 64.2 % (47-70); Platelet Count 146 K/mm3 (150-450); RBC Distribution Width CV 12.5 % (11.6-14.6); RBC Distribution Width SD 44.2 fl (35.1-43.9); Red Blood Count 4.56 M/mm3 (4.6-6.2); White Blood Count 5.5 K/mm3 (4.4-11.0)
[2022-11-16 13:17] LABS: ALB/GLOB Ratio 1.1 RATIO (0.9-2.4); AST(SGOT) 18 U/L (15-37); Alanine Aminotransfer ALT/SGPT 32 U/L (16-61); Albumin, Serum 3.5 g/dL (3.2-5.0); Alkaline Phosphatase 87 U/L (45-117); Anion Gap 5 (5-15); BUN 21 mg/dL (7-18); BUN/Creat Ratio 21.1 RATIO (10-20); Calcium,Total 9.1 mg/dL (8.5-10.1); Chloride 110 mmol/L (98-107); Cholesterol 109 mg/dL (200); Creatinine, Serum 0.99 mg/dL (0.70-1.30); EST Glomerular Filtration Rate 78 mL/min (>60); Est Glom Filt Rate - Afr Amer 94 mL/min (>60); Globulin 3.3 g/dL (2.2-4.2); Glucose 95 mg/dL (74-106); High Density Lipoprotein 41 mg/dL; Potassium 4.4 mmol/L (3.5-5.1); Protein, Total 6.8 g/dL (6.4-8.2); Sodium Level 141 mmol/L (136-145); Thyroid Stim Hormone (TSH) 0.94 uIU/mL (0.358-3.74); Triglycerides 100 mg/dL; Very Low Density Lipoprotein 20 mg/dL (5-40)
[2022-11-16 13:44] LABS: Microalbumin,Random Urine 71.3 mg/L (NO RANGE EST.); Microalbumin:Creatinine Ratio 41.7 mg/g CRE (<30 mg/g CRE)
[2022-11-16 14:25] LABS: Hemoglobin A1c 6.1 % (3.8-5.6)
== END | disposition home or self-care (01) ==
LOC: MFPLAB 10:55
PROVIDERS: PCP Family Medicine; Visit Provider Family Medicine
DX: E11.9 Type 2 diabetes mellitus without complications (principal)
CPT/HCPCS: 36415; 80053; 80061; 82043; 82570; 83036; 84443; 85025

== ENCOUNTER → 2023-03-29 | Outpatient (CLI) | payer MEDICARE, OTHER, SELFPAY ==
[2023-03-29 16:16] LABS: AST(SGOT) 24 U/L (15-37); Alanine Aminotransfer ALT/SGPT 35 U/L (16-61); Albumin, Serum 3.6 g/dL (3.2-5.0); Alkaline Phosphatase 94 U/L (45-117); Anion Gap 5 (5-15); BUN 21 mg/dL (7-18); BUN/Creat Ratio 18.1 RATIO (10-20); Calcium,Total 9.2 mg/dL (8.5-10.1); Chloride 107 mmol/L (98-107); Cholesterol 115 mg/dL (200); Creatinine, Serum 1.16 mg/dL (0.70-1.30); EST Glomerular Filtration Rate 65 mL/min (>60); Est Glom Filt Rate - Afr Amer 79 mL/min (>60); Globulin 3.5 g/dL (2.2-4.2); Glucose 71 mg/dL (74-106); High Density Lipoprotein 39 mg/dL; Potassium 4.3 mmol/L (3.5-5.1); Protein, Total 7.1 g/dL (6.4-8.2); Sodium Level 139 mmol/L (136-145); Triglycerides 97 mg/dL; Very Low Density Lipoprotein 19 mg/dL (5-40)
[2023-03-29 16:21] LABS: Hemoglobin A1c 5.9 % (3.8-5.6)
[2023-03-29 16:26] LABS: Absolute Lymphocyte Count 1.72 X10^3/uL (0.83-4.51); Absolute Neutrophil Count 4.5 X10^3/uL (2.0-7.7); Basophil# 0.03 X10^3/uL; Basophil% 0.4 % (0-1); Eosinophil# 0.15 X10^3/uL; Eosinophils% 2.2 % (0-5); Hematocrit 43.2 % (40-54); Hemoglobin 14.1 g/dL (13.0-16.5); Lymphocyte # 1.72 X10^3/ul (0.83-4.51); Lymphocyte % 25.3 % (19-41); Mean Corp Hgb Conc 32.6 g/dL (32-36); Mean Corpuscular Hgb 31.1 pg (27.0-32.0); Mean Corpuscular Volume 95.4 fL (80-94); Mean Platelet Vol. 11.3 fl (6.2-12.0); Monocyte# 0.42 X10^3/uL; Monocyte% 6.2 % (0-10); NRBC Flagged by Analyzer 0 % (0-5); Neutrophil # 4.47 X10^3/uL (2.7-7.7); Neutrophil % 65.6 % (47-70); Platelet Count 171 K/mm3 (150-450); RBC Distribution Width CV 12.6 % (11.6-14.6); RBC Distribution Width SD 44.2 fl (35.1-43.9); Red Blood Count 4.53 M/mm3 (4.6-6.2); White Blood Count 6.8 K/mm3 (4.4-11.0)
[2023-03-29 16:48] LABS: Microalbumin,Random Urine 54.2 mg/L (NO RANGE EST.); Microalbumin:Creatinine Ratio 37.1 mg/g CRE (<30 mg/g CRE)
== END | disposition home or self-care (01) ==
LOC: MFPLAB 11:40
PROVIDERS: PCP Family Medicine; Visit Provider Family Medicine
DX: E11.9 Type 2 diabetes mellitus without complications (principal)
CPT/HCPCS: 36415; 80053; 80061; 82043; 82570; 83036; 85025

== ENCOUNTER → 2023-04-26 | Outpatient (CLI) | payer MEDICARE, OTHER, SELFPAY ==
--- NOTE | 2023-04-26 11:41 | US_ITS ---
STUDY: THYROID ULTRASOUND REASON FOR EXAM: Male, 77 years old. Thyroid nodule. TECHNIQUE: Ultrasound evaluation of the thyroid was performed with real-time and static edwards-scale imaging. COMPARISON: Comparison is made with prior study dated February 05, 2022. FINDINGS: RIGHT LOBE: The right lobe of the thyroid gland measures 3.9 cm x 1.8 cm x 2.0 cm. There is a homogeneous echotexture. There are no demonstrated solid, cystic or complex lesions. LEFT LOBE: The left lobe of the thyroid gland measures 3.7 cm x 1.7 cm x 1.8 cm. There is a homogeneous echotexture. Stable 1.1 cm x 1 cm x 1.2 cm isoechoic solid nodule in the midpole of the left lobe. ISTHMUS: The isthmus measures 5 mm. The regional lymph nodes are normal. US/Thyroid IMPRESSION: Stable 1.1 cm x 1 cm x 1.2 cm isoechoic solid nodule in the midpole of the left lobe of the thyroid. Electronically Signed: Flakito Campbell MD at 12:34 EST ,
== END | disposition home or self-care (01) ==
LOC: US 11:40
PROVIDERS: PCP Family Medicine; Referring Provider Family Medicine; Visit Provider Family Medicine
DX: E04.1 Nontoxic single thyroid nodule (principal)
CPT/HCPCS: 76536

== ENCOUNTER → 2023-08-06 | Outpatient (CLI) | payer MEDICARE, OTHER, SELFPAY ==
[2023-08-06 12:19] LABS: Absolute Lymphocyte Count 1.89 X10^3/uL (0.83-4.51); Absolute Neutrophil Count 3.3 X10^3/uL (2.0-7.7); Basophil# 0.04 X10^3/uL; Basophil% 0.7 % (0-1); Eosinophil# 0.18 X10^3/uL; Eosinophils% 3.1 % (0-5); Hematocrit 44.5 % (40-54); Hemoglobin 14.7 g/dL (13.0-16.5); Lymphocyte # 1.89 X10^3/ul (0.83-4.51); Lymphocyte % 32.6 % (19-41); Mean Corpuscular Hgb 31.2 pg (27.0-32.0); Mean Corpuscular Volume 94.5 fL (80-94); Mean Platelet Vol. 11.1 fl (6.2-12.0); Monocyte% 6.9 % (0-10); NRBC Flagged by Analyzer 0 % (0-5); Neutrophil # 3.27 X10^3/uL (2.7-7.7); Neutrophil % 56.4 % (47-70); Platelet Count 155 K/mm3 (150-450); RBC Distribution Width CV 12.6 % (11.6-14.6); RBC Distribution Width SD 43.8 fl (35.1-43.9); Red Blood Count 4.71 M/mm3 (4.6-6.2); White Blood Count 5.8 K/mm3 (4.4-11.0)
[2023-08-06 12:24] LABS: Microalbumin,Random Urine 32.6 mg/L (NO RANGE EST.); Microalbumin:Creatinine Ratio 50.9 mg/g CRE (<30 mg/g CRE)
[2023-08-06 12:55] LABS: ALB/GLOB Ratio 1.1 RATIO (0.9-2.4); AST(SGOT) 18 U/L (15-37); Alanine Aminotransfer ALT/SGPT 32 U/L (16-61); Albumin, Serum 3.6 g/dL (3.2-5.0); Alkaline Phosphatase 87 U/L (45-117); Anion Gap 7 (5-15); BUN 18 mg/dL (7-18); BUN/Creat Ratio 15.4 RATIO (10-20); Calcium,Total 9.1 mg/dL (8.5-10.1); Chloride 107 mmol/L (98-107); Cholesterol 120 mg/dL (200); Creatinine, Serum 1.17 mg/dL (0.70-1.30); EST Glomerular Filtration Rate 64 mL/min (>60); Est Glom Filt Rate - Afr Amer 78 mL/min (>60); Globulin 3.3 g/dL (2.2-4.2); Glucose 83 mg/dL (74-106); High Density Lipoprotein 39 mg/dL; PSA,Total- Diagnostic < 0.01 ng/mL (0.0-4.0); Potassium 3.9 mmol/L (3.5-5.1); Protein, Total 6.9 g/dL (6.4-8.2); Sodium Level 139 mmol/L (136-145); Triglycerides 81 mg/dL; Very Low Density Lipoprotein 16 mg/dL (5-40)
[2023-08-06 13:38] LABS: Hemoglobin A1c 6.1 % (3.8-5.6)
== END | disposition home or self-care (01) ==
LOC: MFPLAB 11:11
PROVIDERS: PCP Family Medicine; Visit Provider Family Medicine
DX: E11.29 Type 2 diabetes mellitus with other diabetic kidney complication (principal); C61 Malignant neoplasm of prostate
CPT/HCPCS: 36415; 80053; 80061; 82043; 82570; 83036; 84153; 85025

== ENCOUNTER → 2024-07-28 | Outpatient (CLI) | payer MEDICARE, OTHER, SELFPAY ==
[2024-07-28 10:19] LABS: Absolute Neutrophil Count 4.4 X10^3/uL (2.0-7.7); Basophil# 0.02 X10^3/uL; Basophil% 0.3 % (0-1); Eosinophil# 0.12 X10^3/uL; Eosinophils% 1.8 % (0-5); Hematocrit 40.3 % (40-54); Hemoglobin 13.9 g/dL (13.0-16.5); Mean Corp Hgb Conc 34.5 g/dL (32-36); Mean Corpuscular Hgb 32.2 pg (27.0-32.0); Mean Corpuscular Volume 93.3 fL (80-94); Mean Platelet Vol. 11.1 fl (6.2-12.0); Monocyte# 0.47 X10^3/uL; Monocyte% 7.2 % (0-10); NRBC Flagged by Analyzer 0 % (0-5); Neutrophil # 4.38 X10^3/uL (2.7-7.7); Neutrophil % 67.4 % (47-70); Platelet Count 147 K/mm3 (150-450); RBC Distribution Width CV 12.3 % (11.6-14.6); RBC Distribution Width SD 42.4 fl (35.1-43.9); Red Blood Count 4.32 M/mm3 (4.6-6.2); White Blood Count 6.5 K/mm3 (4.4-11.0)
[2024-07-28 10:57] LABS: Microalbumin,Random Urine 29.6 mg/L (NO RANGE EST.)
[2024-07-28 11:04] LABS: Hemoglobin A1c 6.3 % (<=5.6)
[2024-07-28 11:26] LABS: ALB/GLOB Ratio 1.6 RATIO (0.9-2.4); AST(SGOT) 23 U/L (<=37); Alanine Aminotransfer ALT/SGPT 27 U/L (<=46); Albumin, Serum 4.1 g/dL (3.4-4.8); Alkaline Phosphatase 94 U/L (40-129); Anion Gap 9 (5-15); BUN 21 mg/dL (4-19); BUN/Creat Ratio 20.1 RATIO (10-20); Calcium,Total 9.1 mg/dL (7.6-11.0); Carbon Dioxide 24.4 mmol/L (21.0-32.0); Chloride 106 mmol/L (98-108); Cholesterol 119 mg/dL (<=200); Creatinine, Serum 1.06 mg/dL (0.70-1.20); EST Glomerular Filtration Rate 72 (>60); Globulin 2.5 g/dL (2.2-4.2); Glucose 125 mg/dL (70-99); High Density Lipoprotein 34 mg/dL; Low Density Lipoprotein Calc. 66 mg/dL; Protein, Total 6.6 g/dL (5.9-8.4); Sodium Level 140 mmol/L (133-145); Total Bilirubin 1.15 mg/dL (0.00-1.30); Triglycerides 95 mg/dL; Very Low Density Lipoprotein 19 mg/dL (5-40); cholesterol:hdl ratio screen 3.49
[2024-07-28 11:28] LABS: PSA,Total- Diagnostic < 0.02 ng/mL (0.00-4.00)
== END | disposition home or self-care (01) ==
PROVIDERS: PCP Family Medicine; Referring Provider Family Medicine; Visit Provider Family Medicine
DX: E11.8 Type 2 diabetes mellitus with unspecified complications (principal); C61 Malignant neoplasm of prostate
CPT/HCPCS: 36415; 80053; 80061; 82043; 83036; 84153; 85025

== ENCOUNTER → 2025-01-19 | Outpatient (CLI) | payer MEDICARE, OTHER, SELFPAY ==
[2025-01-19 18:06] LABS: AST(SGOT) 21 U/L (<=37); Alanine Aminotransfer ALT/SGPT 23 U/L (<=46); Albumin, Serum 4.0 g/dL (3.4-4.8); Alkaline Phosphatase 84 U/L (40-129); Anion Gap 8 (5-15); BUN 24 mg/dL (4-19); BUN/Creat Ratio 22.2 RATIO (10-20); Calcium,Total 9.4 mg/dL (7.6-11.0); Carbon Dioxide 25.6 mmol/L (21.0-32.0); Chloride 106 mmol/L (98-108); Cholesterol 121 mg/dL (<=200); Globulin 2.6 g/dL (2.2-4.2); Glucose 122 mg/dL (70-99); Low Density Lipoprotein Calc. 55 mg/dL; Potassium 4.3 mmol/L (3.3-5.1); Triglycerides 187 mg/dL; Very Low Density Lipoprotein 37 mg/dL (5-40); cholesterol:hdl ratio screen 3.45
== END | disposition home or self-care (01) ==
LOC: MTLAB 16:24
PROVIDERS: PCP Family Medicine; Referring Provider Family Medicine; Visit Provider Family Medicine
DX: E11.8 Type 2 diabetes mellitus with unspecified complications (principal)
CPT/HCPCS: 36415; 80053; 80061; 83036